=== PATIENT | female | born 1985 | race Two or more races ===

== ENCOUNTER 2021-02-18 14:38 | Emergency (ER) | payer MEDICAID, SELFPAY ==
[2021-02-18 14:44] VITALS: BP 154/94; PULSE 100; RESP 18; TEMP 36.9; O2SAT 97; BMI 38.7
--- NOTE | 2021-02-18 15:37 | ED.EYEPROB ---
HPI - Eye Problem General Chief complaint: Eye Problems Stated complaint: eye problem Time Seen by Provider: 02/18/21 15:32 Source: patient Limitations: no limitations History of Present Illness HPI Narrative: Patient complains of bilateral eye itching and burning with thick discharge for the past 2 days. Her father similar symptoms. Some blurred vision intermittently. No deep globe pain. No fevers or chills. Mild runny nose. No cough. No difficulty breathing. No COVID exposure that she knows of. She had something similar for years ago which resolved spontaneously. She thought it was allergies Related Data Previous Rx's Medication Instructions Recorded erythromycin 5 mg/gram (0.5 %) eye 0.5 inch OPHTHALMIC (EYE) QID #3.5 02/18/21 ointment g Allergies Allergy/AdvReac Type Severity Reaction Status Date / Time SEAFOOD Allergy Intermediate ANAPHYLAXSI Uncoded 02/10/20 18:42 S sea food Allergy Unknown Uncoded 01/19/20 00:00 Review of Systems Constitutional: Comments: No fevers or chills Eyes: Comments: Redness burning and discharged ENT: Comments: Mild rhinorrhea Cardiovascular: Comments: No chest pain Respiratory: Comments: No cough or dyspnea Gastrointestinal: Comments: No nausea vomiting PMFSH Past Medical History Medical History (Updated 02/18/21 @ 15:41 by Darren Valera MD) No active medical problems Social History Social History Advance Directives: No Advance Directives Information Provided: Yes Patient : No Physical Exam Vital Signs: Vital Signs: Last Vital Signs Temp 98.4 F 02/18/21 14:44 Pulse 100 02/18/21 14:44 Resp 18 02/18/21 14:44 BP 154/94 H 02/18/21 14:44 Pulse Ox 97 02/18/21 14:44 Body Mass Index 38.7 Const: Other: Awake alert no acute distress HENMT: Other: Normocephalic atraumatic Eyes: Other: Bilateral conjunctival injection with mild purulence drainage. Vision grossly intact. Pupils equal round reactive to light. Extraocular muscles intact. Funduscopic exam is normal Resp: Other: No respiratory distress Skin: Other: No obvious rash Course Course Course Narrative: Viral conjunctivitis Bacterial conjunctivitis Allergic conjunctivitis No evidence of significant globe abnormality. Given purulent drainage, it is more likely infectious conjunctivitis viral versus bacterial. Will start on Ilotycin and discharge home Discharge Plan Discharge Clinical Impression: Bacterial conjunctivitis Patient Disposition: Home, Self-Care Instructions: Conjunctivitis (ED) Prescriptions: New erythromycin 5 mg/gram (0.5 %) ointment 0.5 inch ophthalmic (eye) QID Qty: 3.5 RF: 0
== END 2021-02-18 15:54 | disposition home or self-care (01) ==
PROVIDERS: Emergency Provider Emergency Medicine; PCP Internal Medicine
DX: H10.33 Unspecified acute conjunctivitis, bilateral (principal)
CPT/HCPCS: 99283

== ENCOUNTER 2021-10-17 08:33 | Outpatient (REF) | payer MEDICAID, SELFPAY ==
[2021-10-23 11:51] LABS: HPV mRNA E6/E7 rflx Not Detected (Not Detected)
== END 2021-10-17 08:34 | disposition home or self-care (01) ==
LOC: HO.LAB 08:33
PROVIDERS: PCP Internal Medicine; Visit Provider Obstetrics & Gynecology
DX: Z01.419 Encounter for gynecological examination (general) (routine) without abnormal findings (principal); Z11.51 Encounter for screening for human papillomavirus (HPV)
CPT/HCPCS: 87624; 88142

== ENCOUNTER 2021-10-27 18:25 | Emergency (ER) | payer MEDICAID, SELFPAY ==
--- NOTE | ~2021-10-27 | CT_ITS ---
EXAMINATION: CT ABDOMEN AND PELVIS WITHOUT CONTRAST CLINICAL INFORMATION: Right-sided flank pain with question COMPARISON: CT abdomen pelvis 02/15/2019 TECHNIQUE: Multidetector volumetric imaging was performed from the superior aspect of the liver through the pubic symphysis. Sagittal and coronal reformatted images were obtained on the technologist's workstation. This CT examination was performed using dose optimization techniques as appropriate, variously including the following: *Automated exposure control *Adjustment of mA and/or kV according to patient size (this includes techniques or standardized protocols for targeted exams where dose is matched to indication/reason for exam; i.e. extremities or head) *Use of iterative reconstruction technique DLP: 964 mGy-cm FINDINGS: LUNG BASES: The visualized lung bases are unremarkable. LIVER, GALLBLADDER, AND BILIARY TREE: The liver is enlarged measuring 21.4 cm in greatest length and demonstrates decreased attenuation consistent with hepatic steatosis. No focal hepatic lesion or biliary ductal dilatation is present. The gallbladder is completely retracted but otherwise unremarkable with no evidence of radiopaque gallstones, gallbladder wall thickening, or obvious pericholecystic inflammatory changes. PANCREAS: Unremarkable. SPLEEN: Mild splenomegaly with spleen measuring 13.3 cm in greatest dimension. ADRENAL GLANDS: Unremarkable. KIDNEYS AND URETERS: The kidneys are normal in size, shape, and attenuation. No hydronephrosis, hydroureter, or calculi seen. No perinephric stranding. BLADDER: Unremarkable. GASTROINTESTINAL TRACT: The small and large bowel are unremarkable. The appendix is unremarkable. ABDOMINAL WALL: No significant hernia is appreciated. LYMPH NODES: No retroperitoneal lymphadenopathy. Multiple small lymph nodes are seen in the cecal mesentery. VASCULAR: Unremarkable. PELVIC VISCERA: A normal anteverted uterus is present. An abnormal mass or free intraperitoneal is not seen. OSSEOUS STRUCTURES: Unremarkable. CT/CT abdomen pelvis wo con IMPRESSION: 1. A cause for the patient's right flank pain has not been found 2. Incidental note made of hepatosplenomegaly and other findings described above. Fleischner guidelines were followed.
[2021-10-27 18:29] VITALS: BP 144/86; PULSE 98; RESP 20; TEMP 36.2; O2SAT 97; BMI 37.3
--- NOTE | 2021-10-27 21:55 | ED.ABDPAIN ---
HPI - Abdominal Pain General Chief Complaint: Abdominal Pain Stated Complaint: abd pain/lower back pain Time Seen by Provider: 10/27/21 21:50 History of Present Illness HPI narrative: Patient is a 36-year-old female no history of kidney stone history of diabetes presents today with having abdominal pain in the right lower quadrant radiating to the right flank area for ongoing for the last day. There is no fever there is no chills. No coughing or congestion or respiratory symptoms. No diaphoresis. Patient claims she is passing gas. Feels constipated. Patient denies any vaginal discharge. She is from home. No history of having similar pains in the past. Pain is worse with movement. No history of abdominal surgery in the past. Her menstruation has been normal. Related Data Home Medications Medication Instructions Recorded Confirmed glipizide 10 mg tablet, extended 10 mg PO BID 10/17/21 release 24 hr lisinopril 5 mg tablet 5 mg PO DAILY 10/17/21 naproxen 500 mg tablet 500 mg PO BID 10/17/21 prazosin 2 mg capsule 2 mg PO TID 10/17/21 Allergies Allergy/AdvReac Type Severity Reaction Status Date / Time SEAFOOD Allergy Intermediate ANAPHYLAXSI Uncoded 10/17/21 08:55 S sea food Allergy Unknown Unknown Uncoded 10/17/21 08:55 Review of Systems Review of Systems No fever no chills no chest pain or shortness of breath no nausea no vomiting Positive abdominal pain in the right lower quadrant radiating to the flank area Yes all other systems are reviewed and are negative PMFSH Past Medical History Attestation statement: The following information was validated with the patient. Medical History LISE II (cervical intraepithelial neoplasia II) Diabetes mellitus Headache, migraine No active medical problems Surgical History H/O LEEP Hx of tonsillectomy Social History Social History Patient Tobacco Use Status: Never used Tobacco Advance Directives: No Advance Directives Information Provided: No Patient : No Physical Exam ED Vital Signs: Vital Signs - 24 hr 10/27/21 18:29 Temperature 97.2 F Pulse Rate 98 Respiratory Rate 20 Blood Pressure 144/86 H Pulse Oximetry 97 BMI result Body Mass Index 37.3 Appearance: Alert. Oriented X3. No acute distress. Eyes: Pupils equal, round and reactive to light. ENT: Pharynx normal. Neck: Normal inspection. Neck supple. No lymph nodes noted. No crepitus CVS: Normal heart rate and rhythm. Pulses normal. Normal S1 and S2 Respiratory: No respiratory distress. Breath sounds normal. No Wheezing. No rales Abdomen: Soft and nontender. No rigidity. No distention. good BS x4 Skin: Skin warm and dry. Normal skin color. Normal skin turgor. Extremities: No lower extremity edema. Neurovascular intact to all extremities. No Lacerations. No Rash Neuro: Oriented X 3. No motor deficit. No sensory deficit. Moving all extermities. No slurred speech MDM - Abdominal Pain MDM Narrative Medical decision making narrative: CT scan of the abdomen pelvis was negative for any acute evidence of abscess, perforation. No appendicitis noted. Patient's electrolytes unremarkable. Will discharge patient home close follow-up on an outpatient basis. Urine showed no signs of infection. Differential Diagnosis Differential diagnosis: Likely abdominal pain Medical Records Attestation: I reviewed the patient's medical records. Lab Data Attestation: I reviewed the patient's lab results. Result diagrams: 10/27/21 22:11 10/27/21 22:11 Labs: Lab Results 10/27/21 10/27/21 10/27/21 Range/Units 22:11 22:13 22:13 WBC 7.9 (4.8-10.8) X10*3/uL RBC 5.41 (4.20-5.50) X10*6/uL Hgb 13.2 (12.0-16.0) g/dl Hct 41.8 (37.0-47.0) % MCV 77.3 L (80.0-98.0) fL MCH 24.4 L (27.0-33.0) pg MCHC 31.6 (31.0-35.0) g/dl RDW 14.2 (11.0-16.0) % Plt Count 262 (160-400) X10*3/uL MPV 10.4 (9.4-12.3) fL Immature Gran % (Auto) 0.6 H (0.0-0.4) % Neut % (Auto) 60.4 (45-73) % Lymph % (Auto) 31.4 (20-40) % [place] % (Auto) 5.7 (2-11) % Eos % (Auto) 1.4 (0-4) % Baso % (Auto) 0.5 (0-2) % Lymph # (Auto) 2.5 (1.2-4.9) X10*3/uL [place] # (Auto) 0.5 (0.1-1.2) X10*3/uL Eos # (Auto) 0.1 (0.0-0.4) X10*3/uL Baso # (Auto) 0.0 (0.0-0.2) X10*3/uL Abs Immat Gran (auto) 0.05 H (0.00-0.03) X10*3/uL Absolute Neuts (auto) 4.8 (2.0-8.3) x10*3/uL Absolute Nucleated RBC 0.000 (0.0-0.012) X10*3/uL Nucleated RBC % (auto) 0.0 (0.0-0.2) /100WBC Urine Color YELLOW Urine Appearance CLEAR Urine pH 6.0 (5.0-8.0) Ur Specific [place] 1.025 (1.005-1.025) Urine Protein NEG (NEG-TRACE) MG/DL Urine Glucose (UA) >=1000 H (NEG) MG/DL Urine Ketones NEG (NEG) MG/DL Urine Blood NEG (NEG) Urine Nitrite NEG (NEG) Ur Leukocyte Esterase NEG (NEG) Urine RBC 0 (0) /HPF Urine WBC 0-2 (0-4) /HPF Ur Squamous Epith Cells TRACE /LPF Urine Bacteria NONE /LPF Urine Test NEGATIVE (NEGATIVE) Discharge Plan Discharge Clinical Impression: Abdominal pain Patient Disposition: Home, Self-Care Instructions: Abdominal Pain (ED) Prescriptions: No Action prazosin 2 mg capsule 2 mg PO TID 0RF glipizide 10 mg tablet extended release 24hr 10 mg PO BID 0RF naproxen 500 mg tablet 500 mg PO BID 0RF lisinopril 5 mg tablet 5 mg PO DAILY 0RF Referrals: Jennifer Escobar MD [Primary Care Provider] - Print Language: Indonesian
[2021-10-27] MEDS: 0.9 % Sodium Chloride 1,000 ML 999 ML IV (22:15)
[2021-10-27] MEDS: Ketorolac Tromethamine 30 MG/ML VIAL IVPUSH (22:15)
[2021-10-27 22:17] LABS: MANUAL DIFF FLAG NO
[2021-10-27 22:19] LABS: Basophils Percent Auto 0.5 % (0-2); Eosinophils Absolute Auto 0.1 X10*3/uL (0.0-0.4); Eosinophils Percent Auto 1.4 % (0-4); Hematocrit 41.8 % (37.0-47.0); Hemoglobin 13.2 g/dl (12.0-16.0); Imm Gran Abs Auto 0.05 X10*3/uL (0.00-0.03); Imm Gran Pct Auto 0.6 % (0.0-0.4); Lymphocytes Absolute Auto 2.5 X10*3/uL (1.2-4.9); Lymphocytes Percent Auto 31.4 % (20-40); Mean Corpuscular HGB Conc 31.6 g/dl (31.0-35.0); Mean Corpuscular Hemoglobin 24.4 pg (27.0-33.0); Mean Corpuscular Volume 77.3 fL (80.0-98.0); Mean Platelet Volume 10.4 fL (9.4-12.3); Monocytes Absolute Auto 0.5 X10*3/uL (0.1-1.2); Monocytes Percent Auto 5.7 % (2-11); Neutrophils Absolute Auto 4.8 x10*3/uL (2.0-8.3); Neutrophils Percent Auto 60.4 % (45-73); Platelet Count 262 X10*3/uL (160-400); Red Blood Count 5.41 X10*6/uL (4.20-5.50); Red Cell Distribution Width 14.2 % (11.0-16.0); White Blood Count 7.9 X10*3/uL (4.8-10.8)
[2021-10-27 22:20] LABS: Appearance Urine CLEAR; Color Urine YELLOW; Glucose Urine UA >=1000 MG/DL (NEG); Leukocyte Esterase Urine NEG (NEG); Nitrite Urine NEG (NEG); Specific Gravity - Urine 1.025 (1.005-1.025); Urine Blood NEG (NEG); Urine Ketones NEG (NEG); Urine Protein NEG (NEG-TRACE)
[2021-10-27 22:21] LABS: UPreg QC Valid YES; Urine Pregnancy NEGATIVE (NEGATIVE)
[2021-10-27 22:49] LABS: RBC Urine 0 /HPF (0); Squamous Epithelial Cell Urine TRACE /LPF; WBC Urine 0-2 /HPF (0-4)
== END 2021-10-28 00:05 | disposition home or self-care (01) ==
PROVIDERS: Emergency Provider Emergency Medicine Emergency Medical Services; PCP Internal Medicine
DX: R10.31 Right lower quadrant pain (principal); M54.50 Low back pain, unspecified; Z79.899 Other long term (current) drug therapy
CPT/HCPCS: 36415; 74176; 81001; 81025; 85025; 96365; 96376; 99283; 99284; J1885

== ENCOUNTER 2022-03-07 13:28 | Emergency (ER) | payer MEDICAID, SELFPAY ==
[2022-03-07 13:42] VITALS: BP 127/77; PULSE 83; RESP 18; TEMP 36.4; O2SAT 100; BMI 37.7
--- NOTE | 2022-03-07 15:16 | ED.HA ---
HPI - Headache General Chief Complaint: Headache Stated Complaint: pain on L side of head Time Seen by Provider: 03/07/22 14:50 Source: patient Mode of arrival: ambulatory Limitations: no limitations History of Present Illness HPI Narrative: 37 yo female presents to the ER for evaluation of severe left sided headaches for the last 1 week. She states the pain is sharp, throbbing and located on the left side of her head, behind the left eye. There are times it is a 10/10, currentl a 7/10. It has been constant for 1 week. She has occasional nausea and vomiting from the pain, last was 4 days ago. She reports intermittent dizziness and blurred vision in the left eye as well. No weakness, numbness, tingling or gait instability. She reports a history of migraine headaches in the past but has not had one in 10 years. Denies photosensitity or sensitivity to sound. MD elicited complaint: headache Pertinent past history: migraines Onset (ago): week(s) (1) Onset description: gradually Location: left, temporal and retro-orbital Severity: severe Pain scale (0-10): 10 Quality & Timing: throbbing and sharp Exacerbating factors: none Relieving factors: nothing Context: occurred at rest Associated symptoms: vision loss Treatments prior to arrival: none Related Data Home Medications Medication Instructions Recorded Confirmed glipizide 10 mg tablet, extended 10 mg PO BID 10/17/21 release 24 hr lisinopril 5 mg tablet 5 mg PO DAILY 10/17/21 naproxen 500 mg tablet 500 mg PO BID 10/17/21 prazosin 2 mg capsule 2 mg PO TID 10/17/21 Previous Rx's Medication Instructions Recorded [id number] 1 cap PO Q8H PRN headache #10 caps 03/07/22 50 mg-300 mg-40 mg capsule (Fioricet) Allergies Allergy/AdvReac Type Severity Reaction Status Date / Time SEAFOOD Allergy Intermediate ANAPHYLAXSI Uncoded 10/17/21 08:55 S sea food Allergy Unknown Unknown Uncoded 10/17/21 08:55 [facility] Past Medical History Medical History LISE II (cervical intraepithelial neoplasia II) Diabetes mellitus Headache, migraine No active medical problems Surgical History H/O RACHEL Hx of tonsillectomy Social History Social History Patient Tobacco Use Status: Never used Tobacco Advance Directives: No Advance Directives Information Provided: No Physical Exam Vital Signs: Vital Signs: Last Vital Signs Temp 97.5 F 03/07/22 13:42 Pulse 83 03/07/22 13:42 Resp 18 03/07/22 13:42 BP 127/77 03/07/22 13:42 Pulse Ox 100 03/07/22 13:42 O2 Del Method 03/07/22 13:42 BMI result Body Mass Index 37.7 Appearance: Alert. Oriented X3. No acute distress. Eyes: Pupils equal, round and reactive to light. No nystagmus ENT: Pharynx normal. Normal TMs bilaterally. Neck: Normal inspection. Neck supple. CVS: Normal heart rate and rhythm. Pulses normal. Respiratory: No respiratory distress. Breath sounds normal. Skin: Skin warm and dry. Normal skin color. Normal skin turgor. No rashes. Extremities: No lower extremity edema. Neuro: Oriented X 3. No motor deficit. No sensory deficit.CN II-XII intact. Normal speech and cognition. Steady gait. Course Course Course Narrative: 37-year-old female presents to the ER for evaluation of left-sided headaches for the last 1 week. She describes retro-orbital pain, vision changes, this is consistent with an ocular migraine. History of migraines in the past but not for several years. She is neurologically intact. She reports 7/10 pain right now. Will treat with IV Toradol, Reglan, Benadryl. Will reassess. Reevaluation(s) Reevaluation #1: Patient's headache is almost completely resolved, 1/10 at this time. Will hold off on imaging of her head for now. She will follow-up with her primary care doctor. She is stable for discharge home. Return precautions were discussed. Discharge Plan Discharge Clinical Impression: Migraine Patient Disposition: Home, Self-Care Instructions: Migraine Headache (ED) Additional Instructions: Take the prescribed medication as needed for headaches. Rest and drink plenty of fluids. Follow-up with primary care doctor. If you develop new or worsening symptoms call 911 or come back to the ER for further evaluation. Prescriptions: New [id number] [Fioricet] 50-300-40 mg capsule 1 cap PO Q8H PRN (Reason: headache) Qty: 10 0RF No Action prazosin 2 mg capsule 2 mg PO TID glipizide 10 mg tablet extended release 24hr 10 mg PO BID naproxen 500 mg tablet 500 mg PO BID lisinopril 5 mg tablet 5 mg PO DAILY Print Language: Moroccan
[2022-03-07] MEDS: 0.9 % Sodium Chloride 1,000 ML 999 ML IVCONT (15:47)
[2022-03-07] MEDS: Ketorolac Tromethamine 30 MG/ML VIAL IVPUSH (15:49)
[2022-03-07] MEDS: diphenhydrAMINE HCL 50 MG/ML VIAL 25 MG IVPUSH (15:52)
[2022-03-07] MEDS: Metoclopramide HCl 10 MG/2 ML VIAL IVPUSH (15:55)
--- NOTE | 2022-03-07 18:02 | PC.NURSE ---
d/c by provider. Unknown if medicated.
== END 2022-03-07 18:03 | disposition home or self-care (01) ==
PROVIDERS: Emergency Provider Emergency Medicine; PCP Internal Medicine
DX: G43.909 Migraine, unspecified, not intractable, without status migrainosus (principal); E11.9 Type 2 diabetes mellitus without complications
CPT/HCPCS: 96361; 96374; 96375; 99284; J1200; J1885; J2765

== ENCOUNTER 2022-04-26 13:13 | Emergency (ER) | payer MEDICAID, SELFPAY ==
--- NOTE | ~2022-04-26 | XR_ITS ---
EXAMINATION: XR CHEST CLINICAL INFORMATION: Chest pain. COMPARISON: 11/28/2018 chest radiograph. TECHNIQUE: 2 views of the chest were obtained. FINDINGS: No significant abnormality is noted involving the heart, lungs, mediastinum, bony thorax or soft tissues. XR/XR chest 2V IMPRESSION: No acute cardiopulmonary process.
[2022-04-26 14:00] VITALS: BP 162/86; PULSE 96; RESP 18; TEMP 36.9; O2SAT 99; BMI 37.5
--- NOTE | 2022-04-26 14:00 | ED_ITS ---
HPI - General Adult General Chief complaint: Abdominal Pain <BARBARA Mims - Last Filed: 04/26/22 14:11> Stated complaint: Chest Stomach Pain <BARBARA Mims Last Filed: 04/26/22 14:11> Time Seen by Provider: 04/26/22 16:10 <BARBARA Mims Last Filed: 04/26/22 14:11> Source: patient and seismic interpreter <BARBARA Mims Last Filed: 04/26/22 14:11> Mode of arrival: ambulatory <BARBARA Mims Last Filed: 04/26/22 14:11> Limitations: language barrier <BARBARA Mims Last Filed: 04/26/22 14:11> History of Present Illness HPI narrative: 37-year-old female history of cervical intraepithelial neoplasia type 2, diabetes, headache/migraine, presenting to the emergency department with complaints of chest /abdominal pain times 2 days worsening. Patient tells me she feels like the pain starts in her epigastric region and radiates up towards her chest, she has a hard time describing the pain however she tells me it is i ntermittent in nature and feels like a discomfort and at times it is sharp. She tells me at 1 point she felt that if she throughout it would feel better however she was unable to throw up. Tells me she has had gastritis in the past however unsure if this felt like her episode of gastritis. She has not noticed any difference in pain level when eating food. Patient has no significant cardiac history other than hypertension, she is not a smoker, no history of DVT or PE, no history of hypercoagulable disorders. Patient denies shortness of breath, leg swelling, fevers, chills, nausea, vomiting, headache, vision changes, dizziness, weakness. <BARBARA Kelley - Last Filed: 04/26/22 19:51> Related Data Home medications: Home Medications Medication Instructions Recorded Confirmed glipizide 10 mg tablet, extended 10 mg PO BID 10/17/21 release 24 hr lisinopril 5 mg tablet 5 mg PO DAILY 10/17/21 naproxen 500 mg tablet 500 mg PO BID 10/17/21 prazosin 2 mg capsule 2 mg PO TID 10/17/21 Previous Rx's Medication Instructions Recorded lkxtfstkvu-oizfvzknsbzdz-ylrgrpag 1 cap PO Q8H PRN headache #10 caps 03/07/22 50 mg-300 mg-40 mg capsule (Fioricet) aluminum-mag hydroxide-simethicone 5 ml PO 5XD PRN dyspepsia #355 mL 04/26/22 200 mg-200 mg-20 mg/5 mL oral susp (Maalox Advanced) calcium carbonate 200 mg calcium 200 mg PO BID PRN dyspepsia #30 04/26/22 (500 mg) chewable tablet (Tums) tabs omeprazole 20 mg capsule,delayed 20 mg PO DAILY #30 caps 04/26/22 release <BARBARA Mims Last Filed: 04/26/22 14:11> Allergies/adverse reactions: Allergies Allergy/AdvReac Type Severity Reaction Status Date / Time SEAFOOD Allergy Intermediate ANAPHYLAXSI Uncoded 10/17/21 08:55 S sea food Allergy Unknown Unknown Uncoded 10/17/21 08:55 <BARBARA Mims Last Filed: 04/26/22 14:11> Review of Systems Review of Systems: Constitutional : No Weight loss, No Fever, No Chills, No Fatigue, No Malaise ENT/Mouth : No sore throat, No Rhinorrhea Eyes: No Eye Pain, No Swelling, No Redness Cardiovascular : + Chest Pain, No SOB, No Dyspnea on Exertion, No Orthopnea, No Edema, No Palpitations Respiratory : No Cough, No Sputum, No Wheezing Gastrointestinal : No Nausea, No Vomiting, No Diarrhea, No Constipation, + abdominal Pain, No Hematochezia, No Melena Genitourinary : No Dysuria, No Urinary Frequency, No Hematuria, Musculoskeletal : No joint pain, No Myalgias, No Joint Swelling Skin : No Skin Lesions, No rash Neuro : No Weakness, No Numbness, No Dizziness, No Headache Psych : No Anxiety/Panic, No Depression All other systems reviewed and are negative <BARBARA Kelley Last Filed: 04/26/22 19:51> Yes all other systems are reviewed and are negative <BARBARA Kelley Last Filed: 04/26/22 19:51> PMFSH Past Medical History Attestation statement: The following information was validated with the patient. <BARBARA Kelley Last Filed: 04/26/22 19:51> Source: old records reviewed and nursing notes reviewed <BARBARA Kelley - Last Filed: 04/26/22 19:51> Medical History: Medical History LISE II (cervical intraepithelial neoplasia II) Diabetes mellitus Headache, migraine No active medical problems <BARBARA Mims - Last Filed: 04/26/22 14:11> Surgical History: Surgical History H/O LEEP Hx of tonsillectomy <BARBARA Mims - Last Filed: 04/26/22 14:11> Social History Social History: Social History Patient Tobacco Use Status: Never used Tobacco Advance Directives: No Advance Directives Information Provided: Yes <BARBARA Mims - Last Filed: 04/26/22 14:11> Physical Exam ED Vital Signs: Vital Signs - 24 hr 04/26/22 14:00 Temperature 98.4 F Pulse Rate 96 Respiratory Rate 18 Blood Pressure 162/86 H Pulse Oximetry 99 Oxygen Delivery Method Room Air BMI result Body Mass Index 37.5 <BARBARA Mims - Last Filed: 04/26/22 14:11> Vital Signs - 24 hr 04/26/22 14:00 Temperature 98.4 F Pulse Rate 96 Respiratory Rate 18 Blood Pressure 162/86 H Pulse Oximetry 99 Oxygen Delivery Method Room Air BMI result Body Mass Index 37.5 vss <BARBARA Kelley - Last Filed: 04/26/22 19:51> Appearance: Alert.? Oriented X3.? No acute distress.? Head: Normocephalic, atraumatic, no step-offs or deformities Eyes: Pupils equal, round and reactive to light.? Neck: Normal inspection.? Neck supple.? CVS: Normal heart rate and rhythm.? Pulses normal.? Respiratory: No respiratory distress.? Breath sounds normal.? Abdomen: Soft and nontender.? Skin: Skin warm and dry.? Normal skin color.? Normal skin turgor.? Extremities: No lower extremity edema.? No calf ttp. 5/5 strength to bilateral upper and lower extremities Neuro: Oriented X 3.? No motor deficit.? No sensory deficit. CN 2-12 intact <BARBARA Kelley - Last Filed: 04/26/22 19:51> Course Reevaluation(s) Reevaluation #1: CBC with no acute findings, chemistry with no electrolyte abnormalities requiring intervention. Patient's glucose noted to be 339, patient tells me she has not taken her home medications today for diabetes, will hydrate with fluids and then do a point of care. Magnesium 1.5 will give 1 g of magnesium at this time. Troponin negative, BNP within normal limits, EKG nonischemic, Unlikely ACS. Will repeat troponin as patient is still complaining of some mild pain however I suspect that this is GI in origin, I do not suspect cardiac origin will give a GI cocktail, will do a p.o. challenge and re-evaluate patient. <BARBARA Kelley Last Filed: 04/26/22 19:51> Time: 16:33 <BARBARA Kelley - Last Filed: 04/26/22 19:51> Reevaluation #2: Patient tells me after GI cocktail she is feeling much better, symptoms resolved, will send her home with Maalox, omeprazole, Tums. Will recheck sugar. <BARBARA Kelley - Last Filed: 04/26/22 19:51> Time: 18:00 <BARBARA Kelley - Last Filed: 04/26/22 19:51> Medications Administered Discontinued Medications Generic Name Dose Route Start Last Admin Trade Name Freq PRN Reason Stop Dose Admin Al Hydroxide/Mg Hydroxide 30 ml 04/26/22 16:23 04/26/22 17:36 Magnesium Hydrox/Alum Hydrox 30 Ml Oral.Susp PO 04/26/22 16:24 30 ml ONCE ONE Administration Belladonna Alkaloids/Phenobarbital 10 ml 04/26/22 17:45 04/26/22 17:54 Phenobarb/Hyoscy/Atropine/Scop 10 Ml Elixir PO 04/26/22 17:46 10 ml ONCE ONE Administration Magnesium Sulfate/Dextrose 1 gm in 100 mls @ 100 mls/hr 04/26/22 16:13 04/26/22 18:40 Magnesium Sulfate/D5w IV 04/26/22 17:12 Infused ONCE ONE Infusion Sodium Chloride 1,000 mls @ 999 mls/hr 04/26/22 16:30 04/26/22 18:40 Ns IV 04/26/22 17:30 999 mls/hr .Q1H1M YANCY Administration Lisinopril 5 mg 04/26/22 16:27 04/26/22 17:35 Lisinopril 5 Mg Tablet PO 04/26/22 16:28 5 mg ONCE ONE Administration Protocol <BARBARA Mims - Last Filed: 04/26/22 14:11> Medications Administered Discontinued Medications Generic Name Dose Route Start Last Admin Trade Name Freq PRN Reason Stop Dose Admin Al Hydroxide/Mg Hydroxide 30 ml 04/26/22 16:23 04/26/22 17:36 Magnesium Hydrox/Alum Hydrox 30 Ml Oral.Susp PO 04/26/22 16:24 30 ml ONCE ONE Administration Belladonna Alkaloids/Phenobarbital 10 ml 04/26/22 17:45 04/26/22 17:54 Phenobarb/Hyoscy/Atropine/Scop 10 Ml Elixir PO 04/26/22 17:46 10 ml ONCE ONE Administration Magnesium Sulfate/Dextrose 1 gm in 100 mls @ 100 mls/hr 04/26/22 16:13 04/26/22 18:40 Magnesium Sulfate/D5w IV 04/26/22 17:12 Infused ONCE ONE Infusion Sodium Chloride 1,000 mls @ 999 mls/hr 04/26/22 16:30 04/26/22 18:40 Ns IV 04/26/22 17:30 999 mls/hr .Q1H1M YANCY Administration Lisinopril 5 mg 04/26/22 16:27 04/26/22 17:35 Lisinopril 5 Mg Tablet PO 04/26/22 16:28 5 mg ONCE ONE Administration Protocol <BARBARA Kelley - Last Filed: 04/26/22 19:51> Medical Decision Making [facility] Narrative Medical decision making narrative: 1616 37-year-old female presenting to the emergency department complaints of epigastric pain and chest discomfort x2 days worsening. Physical examination benign. Perc negative, unlikely that this is PE. Low suspicion for ACS however will rule out. Unlikely that this is CHF. Unlikely that this is DVT. Concerns for possible GERD/gastritis. I do not suspect cardiac etiologies. Plan at this time is basic labs, imaging, EKG, troponin, BNP. <BARBARA Kelley - Last Filed: 04/26/22 19:51> Medical Records Medical records reviewed: Yes I reviewed the patient's medical records. <BARBARA Kelley - Last Filed: 04/26/22 19:51> Lab Data Lab results reviewed: Yes I reviewed the patient's lab results. <BARBARA Kelley - Last Filed: 04/26/22 19:51> Result diagrams: : 04/26/22 14:13 04/26/22 14:13 <BARBARA Mims - Last Filed: 04/26/22 14:11> Labs: Lab Results 04/26/22 04/26/22 04/26/22 Range/Units 14:13 14:13 14:13 WBC 5.6 (4.8-10.8) X10*3/uL RBC 5.46 (4.20-5.50) X10*6/uL Hgb 13.0 (12.0-16.0) g/dl Hct 41.2 (37.0-47.0) % MCV 75.5 L (80.0-98.0) fL MCH 23.8 L (27.0-33.0) pg MCHC 31.6 (31.0-35.0) g/dl RDW 14.4 (11.0-16.0) % Plt Count 261 (160-400) X10*3/uL MPV 9.9 (9.4-12.3) fL Immature Gran % (Auto) 0.5 H (0.0-0.4) % Neut % (Auto) 65.0 (45-73) % Lymph % (Auto) 26.7 (20-40) % [place] % (Auto) 5.7 (2-11) % Eos % (Auto) 1.6 (0-4) % Baso % (Auto) 0.5 (0-2) % Lymph # (Auto) 1.5 (1.2-4.9) X10*3/uL [place] # (Auto) 0.3 (0.1-1.2) X10*3/uL Eos # (Auto) 0.1 (0.0-0.4) X10*3/uL Baso # (Auto) 0.0 (0.0-0.2) X10*3/uL Abs Immat Gran (auto) 0.03 (0.00-0.03) X10*3/uL Absolute Neuts (auto) 3.7 (2.0-8.3) x10*3/uL Absolute Nucleated RBC 0.000 (0.0-0.012) X10*3/uL Nucleated RBC % (auto) 0.0 (0.0-0.2) /100WBC Sodium 134 L (135-145) mmol/L Potassium 3.9 (3.3-5.1) mmol/L Chloride 98 (96-108) mmol/L Carbon Dioxide 29 (22-29) mmol/L Anion Gap 11 L (12-20) BUN 12 (9-16) mg/dL Creatinine 0.84 (0.5-1.4) mg/dL Estim Creat Clear Calc 117.6 Estimated GFR > 60 Random Glucose 339 H (60-115) mg/dL Calcium 9.9 (8.4-10.2) mg/dL Magnesium 1.5 L (1.6-2.6) mg/dL Total Bilirubin 0.3 (0.0-1.0) mg/dL AST 18 (5-31) U/L ALT 41 H (0-31) U/L Alkaline Phosphatase 84 (39-117) U/L Troponin I High Sens < 3.5 (<3.5-17.0) ng/L B-Natriuretic Peptide (<100) pg/mL Total Protein 7.1 (6.5-8.0) g/dL Albumin 4.2 (3.5-5.0) g/dL Lipase 28 (8-78) U/L Beta HCG, Quant < 2 mIU/mL 04/26/22 04/26/22 Range/Units 14:13 16:46 WBC (4.8-10.8) X10*3/uL RBC (4.20-5.50) X10*6/uL Hgb (12.0-16.0) g/dl Hct (37.0-47.0) % MCV (80.0-98.0) fL MCH (27.0-33.0) pg MCHC (31.0-35.0) g/dl RDW (11.0-16.0) % Plt Count (160-400) X10*3/uL MPV (9.4-12.3) fL Immature Gran % (Auto) (0.0-0.4) % Neut % (Auto) (45-73) % Lymph % (Auto) (20-40) % [place] % (Auto) (2-11) % Eos % (Auto) (0-4) % Baso % (Auto) (0-2) % Lymph # (Auto) (1.2-4.9) X10*3/uL [place] # (Auto) (0.1-1.2) X10*3/uL Eos # (Auto) (0.0-0.4) X10*3/uL Baso # (Auto) (0.0-0.2) X10*3/uL Abs Immat Gran (auto) (0.00-0.03) X10*3/uL Absolute Neuts (auto) (2.0-8.3) x10*3/uL Absolute Nucleated RBC (0.0-0.012) X10*3/uL Nucleated RBC % (auto) (0.0-0.2) /100WBC Sodium (135-145) mmol/L Potassium (3.3-5.1) mmol/L Chloride (96-108) mmol/L Carbon Dioxide (22-29) mmol/L Anion Gap (12-20) BUN (9-16) mg/dL Creatinine (0.5-1.4) mg/dL Estim Creat Clear Calc Estimated GFR Random Glucose (60-115) mg/dL Calcium (8.4-10.2) mg/dL Magnesium (1.6-2.6) mg/dL Total Bilirubin (0.0-1.0) mg/dL AST (5-31) U/L ALT (0-31) U/L Alkaline Phosphatase (39-117) U/L Troponin I High Sens < 3.5 (<3.5-17.0) ng/L B-Natriuretic Peptide < 10 (<100) pg/mL Total Protein (6.5-8.0) g/dL Albumin (3.5-5.0) g/dL Lipase (8-78) U/L Beta HCG, Quant mIU/mL <BARBARA Mims - Last Filed: 04/26/22 14:11> Lab Results 04/26/22 04/26/22 04/26/22 Range/Units 14:13 14:13 14:13 WBC 5.6 (4.8-10.8) X10*3/uL RBC 5.46 (4.20-5.50) X10*6/uL Hgb 13.0 (12.0-16.0) g/dl Hct 41.2 (37.0-47.0) % MCV 75.5 L (80.0-98.0) fL MCH 23.8 L (27.0-33.0) pg MCHC 31.6 (31.0-35.0) g/dl RDW 14.4 (11.0-16.0) % Plt Count 261 (160-400) X10*3/uL MPV 9.9 (9.4-12.3) fL Immature Gran % (Auto) 0.5 H (0.0-0.4) % Neut % (Auto) 65.0 (45-73) % Lymph % (Auto) 26.7 (20-40) % [place] % (Auto) 5.7 (2-11) % Eos % (Auto) 1.6 (0-4) % Baso % (Auto) 0.5 (0-2) % Lymph # (Auto) 1.5 (1.2-4.9) X10*3/uL [place] # (Auto) 0.3 (0.1-1.2) X10*3/uL Eos # (Auto) 0.1 (0.0-0.4) X10*3/uL Baso # (Auto) 0.0 (0.0-0.2) X10*3/uL Abs Immat Gran (auto) 0.03 (0.00-0.03) X10*3/uL Absolute Neuts (auto) 3.7 (2.0-8.3) x10*3/uL Absolute Nucleated RBC 0.000 (0.0-0.012) X10*3/uL Nucleated RBC % (auto) 0.0 (0.0-0.2) /100WBC Sodium 134 L (135-145) mmol/L Potassium 3.9 (3.3-5.1) mmol/L Chloride 98 (96-108) mmol/L Carbon Dioxide 29 (22-29) mmol/L Anion Gap 11 L (12-20) BUN 12 (9-16) mg/dL Creatinine 0.84 (0.5-1.4) mg/dL Estim Creat Clear Calc 117.6 Estimated GFR > 60 Random Glucose 339 H (60-115) mg/dL Calcium 9.9 (8.4-10.2) mg/dL Magnesium 1.5 L (1.6-2.6) mg/dL Total Bilirubin 0.3 (0.0-1.0) mg/dL AST 18 (5-31) U/L ALT 41 H (0-31) U/L Alkaline Phosphatase 84 (39-117) U/L Troponin I High Sens < 3.5 (<3.5-17.0) ng/L B-Natriuretic Peptide (<100) pg/mL Total Protein 7.1 (6.5-8.0) g/dL Albumin 4.2 (3.5-5.0) g/dL Lipase 28 (8-78) U/L Beta HCG, Quant < 2 mIU/mL 04/26/22 04/26/22 Range/Units 14:13 16:46 WBC (4.8-10.8) X10*3/uL RBC (4.20-5.50) X10*6/uL Hgb (12.0-16.0) g/dl Hct (37.0-47.0) % MCV (80.0-98.0) fL MCH (27.0-33.0) pg MCHC (31.0-35.0) g/dl RDW (11.0-16.0) % Plt Count (160-400) X10*3/uL MPV (9.4-12.3) fL Immature Gran % (Auto) (0.0-0.4) % Neut % (Auto) (45-73) % Lymph % (Auto) (20-40) % [place] % (Auto) (2-11) % Eos % (Auto) (0-4) % Baso % (Auto) (0-2) % Lymph # (Auto) (1.2-4.9) X10*3/uL [place] # (Auto) (0.1-1.2) X10*3/uL Eos # (Auto) (0.0-0.4) X10*3/uL Baso # (Auto) (0.0-0.2) X10*3/uL Abs Immat Gran (auto) (0.00-0.03) X10*3/uL Absolute Neuts (auto) (2.0-8.3) x10*3/uL Absolute Nucleated RBC (0.0-0.012) X10*3/uL Nucleated RBC % (auto) (0.0-0.2) /100WBC Sodium (135-145) mmol/L Potassium (3.3-5.1) mmol/L Chloride (96-108) mmol/L Carbon Dioxide (22-29) mmol/L Anion Gap (12-20) BUN (9-16) mg/dL Creatinine (0.5-1.4) mg/dL Estim Creat Clear Calc Estimated GFR Random Glucose (60-115) mg/dL Calcium (8.4-10.2) mg/dL Magnesium (1.6-2.6) mg/dL Total Bilirubin (0.0-1.0) mg/dL AST (5-31) U/L ALT (0-31) U/L Alkaline Phosphatase (39-117) U/L Troponin I High Sens < 3.5 (<3.5-17.0) ng/L B-Natriuretic Peptide < 10 (<100) pg/mL Total Protein (6.5-8.0) g/dL Albumin (3.5-5.0) g/dL Lipase (8-78) U/L Beta HCG, Quant mIU/mL <ABRBARA Kelley - Last Filed: 04/26/22 19:51> ECG Data Attestation: I personally reviewed and interpreted this ECG as follows: <BARBARA Kelley - Last Filed: 04/26/22 19:51> Prior ECG tracings: available for review <BARBARA Kelley - Last Filed: 04/26/22 19:51> Interpretation: Ventricular rate of 95, HI normal, QRS QT/QTC normal. EKG with normal sinus rhythm minimal voltage for LVH, no ST elevations or inversions concerning for ischemia. No significant changes when compared to previous 11/24/2019 <BARBARA Kelley - Last Filed: 04/26/22 19:51> Critical Care Time Critical Care Time Critical Care Time: No <BARBARA Kelley - Last Filed: 04/26/22 19:51> Discharge Plan Discharge Clinical Impression: Gastritis, Gastroesophageal reflux disease <BARBARA Mims Last Filed: 04/26/22 14:11> Patient Disposition: Home, Self-Care <BARBARA Mims Last Filed: 04/26/22 14:11> Instructions: Gastritis (ED), Diet for Stomach Ulcers and Gastritis (ED), Gastroesophageal Reflux Disease (ED), Indigestion (ED) <BARBARA Mims Last Filed: 04/26/22 14:11> Additional Instructions: Take your medications as prescribed. If you were prescribed antibiotics today, it is important that you take your medication to their entirety, do not skip any doses, do not finish them early. Follow-up with your primary care provider this week. If discomfort persist please follow-up with gastroenterology information below. Return to the emergency department with new or worsening symptoms. Such as fevers, chills, chest pain, shortness of breath, nausea, vomiting, dizziness, headache, vision changes, lethargy Follow the dietary recommendations In case of emergency call 911 <BARBARA Mims - Last Filed: 04/26/22 14:11> Prescriptions: New alum-mag hydroxide-simeth [Maalox Advanced] 200-200-20 mg/5 mL suspension 5 ml PO 5XD PRN (Reason: dyspepsia) Qty: 355 0RF Rx Instructions: administer between meals and at bedtime calcium carbonate [Tums] 200 mg calcium (500 mg) tablet,chewable 200 mg PO BID PRN (Reason: dyspepsia) Qty: 30 0RF omeprazole 20 mg capsule,delayed release(DR/EC) 20 mg PO DAILY Qty: 30 0RF No Action plshfdezva-igorvvysaceac-vfvz [Fioricet] 50-300-40 mg capsule 1 cap PO Q8H PRN (Reason: headache) Qty: 10 0RF prazosin 2 mg capsule 2 mg PO TID glipizide 10 mg tablet extended release 24hr 10 mg PO BID naproxen 500 mg tablet 500 mg PO BID lisinopril 5 mg tablet 5 mg PO DAILY <BARBARA Mims - Last Filed: 04/26/22 14:11> [place] [facility] [place] [facility] [place] [facility] [place] Group] - 1 week Jennifer Escobar MD [Primary Care Provider] - 2 days <BARBARA Mims - Last Filed: 04/26/22 14:11> Stand Alone Forms: Work/School Release <BARBARA Mims - Last Filed: 04/26/22 14:11>
--- NOTE | 2022-04-26 14:01 | ECG_ITS ---
Test Reason : abd pain Blood Pressure : / mmHG Vent. Rate : 095 BPM Atrial Rate : 095 BPM P-R Int : 168 ms QRS Dur : 084 ms QT Int : 354 ms P-R-T Axes : 041 -05 023 degrees QTc Int : 444 ms Normal sinus rhythm Minimal voltage criteria for LVH, may be normal variant ( R in aVL ) Borderline ECG Referred By: Val Franco Electronically Signed By:Yaakov Smith
[2022-04-26 14:20] LABS: MANUAL DIFF FLAG NO
[2022-04-26 14:27] LABS: Basophils Percent Auto 0.5 % (0-2); Eosinophils Absolute Auto 0.1 X10*3/uL (0.0-0.4); Eosinophils Percent Auto 1.6 % (0-4); Hematocrit 41.2 % (37.0-47.0); Imm Gran Abs Auto 0.03 X10*3/uL (0.00-0.03); Imm Gran Pct Auto 0.5 % (0.0-0.4); Lymphocytes Absolute Auto 1.5 X10*3/uL (1.2-4.9); Lymphocytes Percent Auto 26.7 % (20-40); Mean Corpuscular HGB Conc 31.6 g/dl (31.0-35.0); Mean Corpuscular Hemoglobin 23.8 pg (27.0-33.0); Mean Corpuscular Volume 75.5 fL (80.0-98.0); Mean Platelet Volume 9.9 fL (9.4-12.3); Monocytes Absolute Auto 0.3 X10*3/uL (0.1-1.2); Monocytes Percent Auto 5.7 % (2-11); Neutrophils Absolute Auto 3.7 x10*3/uL (2.0-8.3); Platelet Count 261 X10*3/uL (160-400); Red Blood Count 5.46 X10*6/uL (4.20-5.50); Red Cell Distribution Width 14.4 % (11.0-16.0); White Blood Count 5.6 X10*3/uL (4.8-10.8)
[2022-04-26 14:42] LABS: B Type Natriuretic Peptide < 10 pg/mL (<100); Troponin-I High Sensitivity < 3.5 ng/L (<3.5-17.0)
[2022-04-26 14:48] LABS: Alanine Aminotransferase 41 U/L (0-31); Albumin Level 4.2 g/dL (3.5-5.0); Alkaline Phosphatase 84 U/L (39-117); Anion Gap 11 (12-20); Aspartate Amino Transferase 18 U/L (5-31); Bilirubin Total 0.3 mg/dL (0.0-1.0); Blood Urea Nitrogen 12 mg/dL (9-16); Calcium 9.9 mg/dL (8.4-10.2); Carbon Dioxide 29 mmol/L (22-29); Chloride 98 mmol/L (96-108); Creatinine Clr Calc Pharmacy 117.6; Estimated Glomerular Filt Rate > 60; Glucose Random 339 mg/dL (60-115); HCG Quantitative < 2 mIU/mL; Magnesium 1.5 mg/dL (1.6-2.6); Potassium 3.9 mmol/L (3.3-5.1); Sodium 134 mmol/L (135-145); Total Protein 7.1 g/dL (6.5-8.0)
[2022-04-26 16:48] LABS: Lipase 28 U/L (8-78)
--- NOTE | 2022-04-26 16:51 | PC.NURSE ---
#20 IV placed in right wrist without any complications noted
[2022-04-26] MEDS: lisinopriL 5 MG TABLET PO (17:35)
[2022-04-26] MEDS: Magnesium Sulfate/D5W 1 GM/100 ML PIGGYBACK IV (17:35)
[2022-04-26] MEDS: Magnesium Hydrox/Alum Hydrox 30 ML ORAL.SUSP PO (17:36)
[2022-04-26 17:41] LABS: Troponin-I High Sensitivity < 3.5 ng/L (<3.5-17.0)
[2022-04-26] MEDS: PHENobarb/Hyoscy/Atropine/Scop 10 ML ELIXIR PO (17:54)
[2022-04-26] MEDS: 0.9 % Sodium Chloride 1,000 ML 999 ML IV (18:40)
[2022-04-26 20:11] LABS: Glucose, Whole Blood 274 mg/dL (60-115)
== END 2022-04-26 20:30 | disposition home or self-care (01) ==
PROVIDERS: Physician Assistant; Physician Assistant Medical; Emergency Provider Emergency Medicine Emergency Medical Services; PCP Internal Medicine
DX: K29.70 Gastritis, unspecified, without bleeding (principal); K21.9 Gastro-esophageal reflux disease without esophagitis; R10.9 Unspecified abdominal pain; R06.02 Shortness of breath; R07.89 Other chest pain; E11.9 Type 2 diabetes mellitus without complications; R51.9 Headache, unspecified; Z79.899 Other long term (current) drug therapy
CPT/HCPCS: 36415; 71046; 80053; 82947; 83690; 83735; 83880; 84484; 84702; 85025; 93005; 96365; 99284; J3475

== ENCOUNTER → 2022-04-29 12:25 | Outpatient (BNVA) | payer MEDICAID, SELFPAY | PROVIDERS: PCP Internal Medicine; Referring Provider Internal Medicine; Visit Provider Surgery | DX: L73.2 Hidradenitis suppurativa (principal); E11.9 Type 2 diabetes mellitus without complications | CPT/HCPCS: 99202 ==

== ENCOUNTER 2022-06-28 06:03 | Day surgery (SDC) | payer MEDICAID, SELFPAY ==
[2022-06-21 15:13] VITALS: BMI 37.5
[2022-06-28] VITALS (13 sets, daily range): BP systolic 126–140; BP diastolic 80–91; PULSE 65–107; RESP 16–18; TEMP 36.2–36.6; O2SAT 96–98
[2022-06-28 06:26] LABS: Glucose, Whole Blood 230 mg/dL (60-115)
[2022-06-28] MEDS: Lactated Ringers 1,000 ML 50 ML IVCONT (06:32)
[2022-06-28 06:37] LABS: UPreg QC Valid YES; Urine Pregnancy NEGATIVE (NEGATIVE)
--- NOTE | 2022-06-28 07:10 | HO.ANESPROP2 ---
[facility] Active Problems Active Problems: All Active Problems (Updated 06/21/22 @ 15:07 by Latasha Desir RN) Well woman exam (Acute) Hidradenitis suppurativa of left axilla (Acute) Morbid obesity (Acute) Past Medical History Medical History LISE II (cervical intraepithelial neoplasia II) Diabetes mellitus Headache, migraine Hidradenitis suppurativa of left axilla Morbid obesity Patient : No Family History Family History Mother No problems noted. Father Hypertension Surgical History Surgical History H/O LEEP Hx of tonsillectomy Social History Social History Patient Tobacco Use Status: Never used Tobacco Are you DNR?: No Advance Directives: No Advance Directives Information Provided: Yes Nutrition Risks: No Nutritional Risk Patient : No FDLMP: 2 months ago Meds Allergies Allergy/AdvReac Type Severity Reaction Status Date / Time seafood Allergy Severe Anaphylaxis Verified 06/21/22 15:05 Active Medications: Current Medications Lactated Ringer's (Lr) 1,000 mls @ 50 mls/hr IVCONT .Q20H YANCY Last Admin: 06/28/22 06:32 Dose: 50 mls/hr Home Medications Medication Instructions Recorded Confirmed Last Taken Type glipizide 10 mg tablet, extended 10 mg PO BID 10/17/21 06/21/22 Unknown History release 24 hr lisinopril 5 mg tablet 5 mg PO DAILY 10/17/21 06/21/22 Unknown History naproxen 500 mg tablet 500 mg PO BID 10/17/21 06/21/22 Unknown History prazosin 2 mg capsule 2 mg PO TID 10/17/21 06/21/22 Unknown History sitagliptin phos 100 mg-metformin 1 tab PO DAILY 04/29/22 06/21/22 Unknown History ER 1,000 mg tablet,extend rel 24h mp (Janumet XR) Exam Exam Date and Time: June 28, 2022 0710 Height,Weight and Vital Signs: Height 5 ft 7 in Weight 108.919 kg Last Vital Signs Temp 97.9 F 06/28/22 06:30 Pulse 96 06/28/22 06:30 Resp 18 06/28/22 06:30 BP 139/89 06/28/22 06:30 Pulse Ox 97 06/28/22 06:30 O2 Del Method 06/28/22 06:30 Pertinent Lab Results Pertinent Lab Results: Laboratory Tests 06/28/22 06/28/22 06:10 06:23 POC Glucose 230 H Urine Test NEGATIVE Airway Mallampati Class: III TM Dist: >3cm Neck ROM: Full Heart: RRR Lungs: CTA Assessment and Plan Final Anesthetic Review ASA Class: II Final Preanesthetic Review: Meds/Allgs Chart Reviewed, Consent Obtained/Reviewed and Anes Risks/Benef Reviewed Patient Risk: Low Procedure Risk: Low Anesthetic Plan Anesthetic Plan: GA Disposition: Standard PACU
--- NOTE | 2022-06-28 07:16 | PC.NURSE ---
dr. chung aware of bs.
--- NOTE | 2022-06-28 07:22 | MHC.SHP ---
Pre-Procedural Eval Section A Date of Service: 06/28/22 Section B Chief Complaint: Hidradenitis suppurativa Details of Present Illness: recurrent swelling and drainage, left axilla Relevant Social History: None Present Medications: see Short Stay Collaborative assessment Medical History: Significant History (morbid obesity) Allergies: Allergies Allergy/AdvReac Type Severity Reaction Status Date / Time seafood Allergy Severe Anaphylaxis Verified 06/21/22 15:05 Review of Systems Sugical H&P ROS: Negative: Constitution, Cardiovascular, Respiratory, Neurological, Psychiatric, Hem-Onc, Allergic/Immunologic, Gastrointestinal, Genitourinary, Musculoskeletal, Integumentary, Endocrine and Eyes/Ears/Nose/Throat Exam Surgical H&P Exam: Normal: HEENT, Normal: Heart, Normal: Lungs, Normal: Extremities, Normal: Abdomen, Normal: Skin and Normal: Neurological Exam Comment: induration with sinuses, left axilla Plan I have reviewed the history and physical and performed a pertinent physical examination on my patient. No changes have occurred unless specified. Time Spent With Patient Time: Total time managing care of this patient today ____ minutes.
--- NOTE | 2022-06-28 08:21 | W.PM.OPN ---
Operative Note Operative Note Date of Service: 06/28/22 Narrative: Preop diagnosis: Hidradenitis suppurativa left axilla Postop diagnosis: The same Procedure: Excision of hidradenitis suppurativa left axilla Surgeon: Nadeem Ceballos MD Community Health Agent: BARBARA Tian student The patient is a 37-year-old female with an area of pain, swelling and drainage on the left axilla consistent with hidradenitis suppurative. Wanted to proceed with excision. She understood the technique of excision under anesthesia. She was aware of the risks, benefits, and alternatives She was brought to the operating room. She was placed supine under general anesthesia via laryngeal mask airway. The left arm was abducted to expose the axilla. This area was prepped and draped the usual sterile fashion. A surgical time-out was done. Lidocaine 1% was used to infiltrate the planned line of incision. The incision elliptically surrounding the induration using blade 15. This was carried down with electrocautery through the full-thickness of the skin subcutaneous fat. Continue to excise indurated tissue within subcutaneous fat. I made sure that skin and subcutaneous tissue were excised. The area of excision was 9 cm long by about 3 cm wide I copiously irrigated. I then cauterized oozing areas. Once hemostasis was confirmed, I closed the incision with deep full-thickness nylon 3-0 interrupted sutures. Dressings were applied. I infiltrated the area around the incision with cane 0.5% for postop analgesia. The procedure was completed. The patient tolerated procedure well. There were no immediate complications. Initial and final counts of sponges and instruments were correct. Estimated blood loss was about 15 cc The patient was extubated without difficulty and transferred to the recovery room with stable vital signs.
[2022-06-28] MEDS: fentaNYL citrate/PF 100 MCG/2 ML VIAL 25 MCG IVPUSH (09:00)
[2022-06-28] MEDS: Acetaminophen 325 MG TABLET 650 MG PO (09:08)
[2022-06-28] MEDS: oxyCODONE HCl Immed Release 5 MG TABLET 10 MG PO (09:12)
--- NOTE | 2022-06-28 13:38 | HO.POSTANES ---
Post Anesthesia Evaluation Post Anesthesia Evaluation Vital Signs: Vital Signs Temp Pulse Resp BP Pulse Ox O2 Del Method O2 Flow Rate 06/28/22 10:03 97.7 F 90 16 127/80 97 Room Air 06/28/22 09:48 92 17 134/84 97 Room Air 06/28/22 09:33 91 17 131/82 98 Room Air 06/28/22 09:18 89 17 132/84 98 Nasal Cannula 2 06/28/22 09:03 98 17 131/91 H 98 Nasal Cannula 4 06/28/22 09:05 90 17 140/88 H 98 Nasal Cannula 4 06/28/22 09:00 98 16 131/91 H 98 4 06/28/22 09:14 90 17 126/89 98 3 06/28/22 09:00 16 06/28/22 08:43 107 H 16 126/80 97 Nasal Cannula 4 06/28/22 08:38 96 16 134/82 97 Nasal Cannula 4 06/28/22 08:48 88 16 131/87 97 Nasal Cannula 4 06/28/22 08:33 97.1 F 65 16 134/82 96 Nasal Cannula 4 06/28/22 06:30 97.9 F 96 18 139/89 97 Room Air Anesthesia: General LMA Mental Status: Awake Pain Control: Satisfactory Nausea/Vomiting: None Hydration: Adequate Anesthesia-Related Issues: No Anes. Related Issues
== END 2022-06-28 10:22 | disposition home or self-care (01) ==
PROVIDERS: Anesthesiology; PCP Internal Medicine; Visit Provider Surgery
PROC: (CPT 11450; principal; 2022-06-28 07:30)
DX: L73.2 Hidradenitis suppurativa (principal); G43.909 Migraine, unspecified, not intractable, without status migrainosus; E11.9 Type 2 diabetes mellitus without complications; Z79.84 Long term (current) use of oral hypoglycemic drugs; Z79.899 Other long term (current) drug therapy; E66.01 Morbid (severe) obesity due to excess calories; Z68.37 Body mass index [BMI] 37.0-37.9, adult
CPT/HCPCS: 11450; 81025; 82947; 88305; J0690; J2250; J2405; J2795; J3010

== ENCOUNTER → 2022-07-11 09:00 | Outpatient (BNVA) | payer MEDICAID, SELFPAY | PROVIDERS: PCP Internal Medicine; Referring Provider Internal Medicine; Visit Provider Physician Assistant Surgical | DX: Z48.817 Encounter for surgical aftercare following surgery on the skin and subcutaneous tissue (principal); Z87.2 Personal history of diseases of the skin and subcutaneous tissue | CPT/HCPCS: 99211 ==

== ENCOUNTER 2022-07-18 10:55 | Outpatient (AMB) | payer MEDICAID, SELFPAY ==
--- NOTE | 2022-07-18 11:00 | MHC.OFFVIS ---
Intake Vital Signs 07/18/22 11:02 Height 5 ft 7 in Weight 244 lb 4.355 oz BMI 38.2 Respiration 16 Intake Visit Reasons: suture removal Intake Note: Pt c/o: burning and pinching at top left side of incision Furniture Mover Required: Yes Furniture Mover Name: [id number] Accompanied by: Significant Other Allergies seafood Allergy (Severe, Verified 07/18/22 11:13) Anaphylaxis HPI suture removal HPI Details Here for follow up s/p excision of hidradenitis left axilla. She has some mild persistent discomfort at the excision site. She took percocet for a few days and then tylenol. Denies drainage, redness from area. [facility] Medical History (Updated 07/10/22 @ 14:57 by Sade Lerma CMA) LISE II (cervical intraepithelial neoplasia II) Diabetes mellitus Headache, migraine Hidradenitis suppurativa of left axilla Morbid obesity Surgical History (Updated 07/10/22 @ 14:57 by Sade Lerma CMA) H/O LEEP History of hidradenitis suppurativa Hx of tonsillectomy Family History Mother No problems noted. Father Hypertension Social History Patient Tobacco Use Status: Never used Tobacco Female Reproductive History Menstrual Age of Menarche: 13 Physical Exam Vital Signs: Last Vital Signs Resp 16 07/18/22 11:02 BMI result Body Mass Index 38.2 Const General: comfortable, no acute distress and alert Orientation/consciousness: patient oriented x3 Chest Other: left axilla- medial aspect of incision well healed and approximated; lateral aspect with some induration and ?keloid formation of superior edge; no opening of excision site and it does appear approximated, no erythema, no drainage, area is tender Resp Effort & Inspection: normal respiratory effort Skin General skin exam: no rashes or lesions noted Neuro General: patient oriented x3 Assessment & Plan Assessment & Plan (1) Hidradenitis suppurativa of left axilla: Code(s): L73.2 - Hidradenitis suppurativa Plan She is three weeks s/p excision of hidradenitis left axilla. Her sutures were removed. She does have some persistent induration and keloid formation of lateral aspect of site. F/u in 2 weeks for wound check. Coding Level of Care Code Est Pt Level 3 (82011) Diagnoses Hidradenitis suppurativa of left axilla L73.2
[2022-07-18 11:02] VITALS: RESP 16; BMI 38.2
== END 2022-07-18 11:21 | disposition home or self-care (01) ==
LOC: HO.HGS 10:56
PROVIDERS: PCP Internal Medicine; Visit Provider Physician Assistant Surgical
DX: L73.2 Hidradenitis suppurativa (principal)
CPT/HCPCS: 99024

== ENCOUNTER → 2022-07-18 10:55 | Outpatient (BNVA) | payer MEDICAID, SELFPAY | PROVIDERS: PCP Internal Medicine; Visit Provider Physician Assistant Surgical | DX: Z13.89 Encounter for screening for other disorder (principal) ==

== ENCOUNTER → 2022-08-21 10:33 | Outpatient (BNVA) | payer MEDICAID, SELFPAY | PROVIDERS: PCP Internal Medicine; Referring Provider Internal Medicine; Visit Provider Surgery | DX: L02.411 Cutaneous abscess of right axilla (principal) | CPT/HCPCS: 10060; 99212 ==

== ENCOUNTER 2022-08-21 11:17 | Inpatient (IN) | payer MEDICAID, SELFPAY ==
[2022-08-21 11:34] VITALS: BP 147/88; PULSE 96; RESP 18; TEMP 36.7; O2SAT 97; BMI 37.1
--- NOTE | 2022-08-21 11:56 | PM.HPGS ---
History of Present Illness History of Present Illness Date of Service: 08/22/22 Chief complaint: Right Axillary Abscess and Cellulitis Narrative: Jacque Hernández is a 37 year old female who is seen in the office earlier because of right axillary swelling, and discharge. She stated this has been going on for about 5 days now. She had an area of fluctuance on the axilla on the right side so an I and D was done in the office. However, she had significant induration and redness consistent with cellulitis. I therefore brought her to the emergency room to be admitted for IV antibiotics and possible repeat I&D. She otherwise denies any fever or chills. She does have a history of hidradenitis suppurativa of the left axilla and this had been excised in the past. She also has known diabetes. Review of Systems Constitutional: Constitutional: Denies chills and Denies fever(s) Cardiovascular: Cardiovascular: Denies chest pain, Denies dyspnea and Denies dyspnea on exertion Respiratory: Respiratory: Denies cough, Denies dyspnea and Denies dyspnea on exertion Gastrointestinal: Gastrointestinal: Denies hematochezia and Denies change in bowel habits Genitourinary: Genitourinary: Denies hematuria Musculoskeletal: Musculoskeletal: Denies back pain and Denies limited range of motion Neurologic: Denies focal weakness and Denies convulsions Psychiatric: Psychiatric: Denies depression and Denies mood swings PMFSH Past Medical History Medical History Abscess of right axilla LISE II (cervical intraepithelial neoplasia II) Diabetes mellitus Headache, migraine Hidradenitis suppurativa of left axilla Morbid obesity Family History Family History Mother No problems noted. Father Hypertension Surgical History Surgical History H/O LEEP History of hidradenitis suppurativa Hx of tonsillectomy Social History Social History Household Members: Spouse Housing: Apartment Do you presently have visiting nurse or other home services: No Alcohol intake: never Patient Tobacco Use Status: Former Tobacco user Meds Allergies Allergy/AdvReac Type Severity Reaction Status Date / Time seafood Allergy Severe Anaphylaxis Verified 08/21/22 13:02 Active Medications: Current Medications Piperacillin Sod/Tazobactam (Sod 3.375 gm/ Sodium Chloride) 50 mls @ 100 mls/hr IV ONCE ONE Stop: 08/21/22 12:06 Pharmacy Consult (Consult Rx Perform Med Rec) 1 each MISCELLANE ONCE PRN PRN Reason: Consult order Home Medications Medication Instructions Recorded Confirmed Last Taken Type glipizide 10 mg tablet, extended 10 mg PO BID 10/17/21 08/21/22 08/21/22 History release 24 hr lisinopril 5 mg tablet 5 mg PO DAILY 10/17/21 08/21/22 Unknown History sitagliptin phos 100 mg-metformin 1 tab PO DAILY 04/29/22 08/21/22 Unknown History ER 1,000 mg tablet,extend rel 24h mp (Janumet XR) acetaminophen 325 mg tablet 650 mg PO Q6H PRN Pain 08/21/22 08/21/22 Unknown History canagliflozin 100 mg tablet 100 mg PO QAM 08/21/22 08/21/22 Unknown History (Invokana) fluoxetine 20 mg capsule 20 mg PO QAM 08/21/22 08/21/22 Unknown History hydroxyzine pamoate 50 mg capsule 50 mg PO TID PRN anxiety 08/21/22 08/21/22 Unknown History meclizine 25 mg tablet 25 mg PO TID PRN dizziness 08/21/22 08/21/22 Unknown History mirtazapine 7.5 mg tablet 7.5 mg PO BEDTIME 08/21/22 08/21/22 Unknown History multivitamin 1 tab PO DAILY 08/21/22 08/21/22 Unknown History oxycodone-acetaminophen 5 mg-325 1 tab PO Q4-6H PRN pain 08/21/22 08/21/22 Unknown History mg tablet sumatriptan succinate 25 mg tablet 25 mg PO DAILY PRN Migraine 08/21/22 08/21/22 Unknown History Headache Physical Exam Vital Signs: Vital Signs: Last Vital Signs Temp 98.0 F 08/21/22 11:34 Pulse 96 08/21/22 11:34 Resp 18 08/21/22 11:34 BP 147/88 H 08/21/22 11:34 Pulse Ox 97 08/21/22 11:34 O2 Del Method Room Air 08/21/22 11:34 BMI result Body Mass Index 37.1 Const: Other: Obese General: comfortable and no acute distress Orientation/consciousness: patient oriented x3 Neck: Neck: Yes no lymphadenopathy Resp: Auscultation: clear to auscultation bilaterally Cardio: Rhythm: regular rhythm GI: Palpation (GI): Soft to palpation, nontender and no guarding Neuro: General: patient oriented x3 Extrem: Other: Right axilla with wide area of induration, short incision from the I&D site, surrounding redness as well consistent with cellulitis Assessment and Plan (1) Abscess of skin or subcutaneous tissue: Status: Acute I had done an I and D in the office under local anesthesia for a large right axillar abscess. However she does have large amounts of induration and cellulitis of the area so I told her that it is best for her to be admitted and be given IV antibiotics. She may also require repeat I&D in the operating room depending on her response to the antibiotics. I will re-evaluate her in the morning. She has a known diabetes so I will also consult the hospitalist service. The patient and her understand the plan and are comfortable with this. Time Spent With Patient Time: Total time managing care of this patient today ____ minutes. Quality Stroke Does the patient have a stroke diagnosis?: No VTE Prior VTE?: No VTE Risk Level:: Medical - low VTE Device Contraindication: N/A - Device Ordered VTE Drug Contraindication: Treatment Not Indicated Procedures Date of Service Date of Service: 08/21/22
--- NOTE | 2022-08-21 12:04 | ED.SKABFB ---
HPI - Skin/Abscess/Foreign Bdy General Chief complaint: Skin/Abscess/Foreign Body Stated complaint: Cyst Rt axilla sent by [facility] Time Seen by Provider: 08/21/22 11:37 Source: patient Mode of arrival: ambulatory Limitations: language barrier History of Present Illness HPI narrative: istory obtained through senior test analyst. patient presents from Dr. Ceballos with right axillary abscess and cellulitis. In June she had I&D on the left. Patient has been a diabetic for 8 years. No fever. She noticed the swelling for 5 days. MD complaint: abscess/boil Onset (ago): day(s) Tetanus up to date: yes Location: RUE Severity: moderate Pain Consistency: constant Related Data Home Medications Medication Instructions Recorded Confirmed glipizide 10 mg tablet, extended 10 mg PO BID 10/17/21 08/21/22 release 24 hr lisinopril 5 mg tablet 5 mg PO DAILY 10/17/21 08/21/22 sitagliptin phos 100 mg-metformin 1 tab PO DAILY 04/29/22 08/21/22 ER 1,000 mg tablet,extend rel 24h mp (Janumet XR) acetaminophen 325 mg tablet 650 mg PO Q6H PRN Pain 08/21/22 08/21/22 canagliflozin 100 mg tablet 100 mg PO QAM 08/21/22 08/21/22 (Invokana) fluoxetine 20 mg capsule 20 mg PO QAM 08/21/22 08/21/22 hydroxyzine pamoate 50 mg capsule 50 mg PO TID PRN anxiety 08/21/22 08/21/22 meclizine 25 mg tablet 25 mg PO TID PRN dizziness 08/21/22 08/21/22 mirtazapine 7.5 mg tablet 7.5 mg PO BEDTIME 08/21/22 08/21/22 multivitamin 1 tab PO DAILY 08/21/22 08/21/22 oxycodone-acetaminophen 5 mg-325 1 tab PO Q4-6H PRN pain 08/21/22 08/21/22 mg tablet sumatriptan succinate 25 mg tablet 25 mg PO DAILY PRN Migraine 08/21/22 08/21/22 Headache Previous Rx's Medication Instructions Recorded calcium carbonate 200 mg calcium 200 mg PO BID PRN dyspepsia #30 04/26/22 (500 mg) chewable tablet (Tums) tabs omeprazole 20 mg capsule,delayed 20 mg PO DAILY #30 caps 04/26/22 release Allergies Allergy/AdvReac Type Severity Reaction Status Date / Time seafood Allergy Severe Anaphylaxis Verified 08/21/22 13:02 Review of Systems Review of Systems: Yes all other systems are reviewed and are negative Integumentary/Breasts: Comments: axillary swelling and redness Neurologic: Denies Sensory deficit (Neuro) [facility] Past Medical History Medical History Abscess of right axilla LISE II (cervical intraepithelial neoplasia II) Diabetes mellitus Headache, migraine Hidradenitis suppurativa of left axilla Morbid obesity Surgical History H/O LEEP History of hidradenitis suppurativa Hx of tonsillectomy Family History Family History Mother No problems noted. Father Hypertension Social History Social History Alcohol intake: never Patient Tobacco Use Status: Never used Tobacco Smoked in Last 30 Days: No Use of substances other than those prescribed or required for medical reasons: No Advance Directives: No Advance Directives Information Provided: Yes Nutrition Risks: No Nutritional Risk Patient : No Physical Exam Vital Signs: Vital Signs: Last Vital Signs Temp 97.6 F 08/21/22 13:07 Pulse 107 H 08/21/22 13:07 Resp 16 08/21/22 13:07 BP 130/73 08/21/22 13:07 Pulse Ox 99 08/21/22 13:07 O2 Del Method Room Air 08/21/22 13:07 BMI result Body Mass Index 37.1 Const: Other: obese femle looking older than stated age Nutritional Appearance: obese Orientation/consciousness: oriented to person and patient oriented x3 Limitations: no limitations HEENT: Head: Yes normal to inspection Ears: external ears normal General nose exam: Normal external nose present Mouth: Normal oral and palatal mucosa present and oropharynx normal Throat: Yes posterior oropharynx normal Eyes: General: appearance normal, both eyes and all related structures Neck: Other: supple Neck: Yes normal visual inspection Chest: Chest palpation & inspection: normal inspection of the chest Resp: Auscultation: clear to auscultation bilaterally Cardio: Jugular venous distension: no JVD Rate: regular rate Rhythm: regular rhythm Heart sounds: S1 normal heart sound present and S2 normal heart sound present GI: Inspection: Yes normal to inspection Palpation (GI): Soft to palpation, nontender and No hepatosplenomegaly present Auscultation: normal bowel sounds : General: Yes no CVA tenderness Back/Spine/Pelvis: Back: no CVA tenderness Skin: Other: large right axillary abscess with surrounding cellulitis Neuro: General: oriented to person and patient oriented x3 Cranial nerves: Yes CN's II-XII intact bilaterally Motor exam (neuro): 5/5 motor strength present throughout Sensory Exam: No Sensory deficit (Neuro) Extrem: General: Yes normal to inspection Psych: Appearance: grossly normal Course Reevaluation(s) Reevaluation #1: patient is hyperglycemic and infected will admit Time: 14:37 Medications Administered Discontinued Medications Generic Name Dose Route Start Last Admin Trade Name Freq PRN Reason Stop Dose Admin Piperacillin Sod/Tazobactam 50 mls @ 100 mls/hr 08/21/22 11:37 08/21/22 13:47 Sod 3.375 gm/ Sodium Chloride IV 08/21/22 12:06 Infused ONCE ONE Infusion Insulin Human Lispro 10 unit 08/21/22 13:34 08/21/22 13:47 Insulin Lispro 100 Unit/Ml 3 Ml Vial SUBCUT 08/21/22 13:35 10 unit ONCE ONE Administration Medical Decision Making Differential Diagnosis Differential Diagnoses: The differential diagnosis associated with the presentation includes (abscess, cellulitis) Consult Healthcare Provider Management of the patient was discussed with: Merchandising Execution Manager (Dr. Ceballos surgery) Lab Data MDM Lab Attestation statement: I reviewed the patient's lab results. (treated glucose) 08/21/22 12:38 08/21/22 12:38 Labs: Lab Results 08/21/22 08/21/22 08/21/22 Range/Units 12:22 12:38 12:38 WBC 7.2 (4.8-10.8) X10*3/uL RBC 5.43 (4.20-5.50) X10*6/uL Hgb 13.0 (12.0-16.0) g/dl Hct 40.9 (37.0-47.0) % MCV 75.3 L (80.0-98.0) fL MCH 23.9 L (27.0-33.0) pg MCHC 31.8 (31.0-35.0) g/dl RDW 14.4 (11.0-16.0) % Plt Count 241 (160-400) X10*3/uL MPV 10.0 (9.4-12.3) fL Immature Gran % (Auto) 0.7 H (0.0-0.4) % Neut % (Auto) 71.2 (45-73) % Lymph % (Auto) 20.7 (20-40) % [place] % (Auto) 5.7 (2-11) % Eos % (Auto) 1.4 (0-4) % Baso % (Auto) 0.3 (0-2) % Lymph # (Auto) 1.5 (1.2-4.9) X10*3/uL [place] # (Auto) 0.4 (0.1-1.2) X10*3/uL Eos # (Auto) 0.1 (0.0-0.4) X10*3/uL Baso # (Auto) 0.0 (0.0-0.2) X10*3/uL Abs Immat Gran (auto) 0.05 H (0.00-0.03) X10*3/uL Absolute Neuts (auto) 5.1 (2.0-8.3) x10*3/uL Absolute Nucleated RBC 0.000 (0.0-0.012) X10*3/uL Nucleated RBC % (auto) 0.0 (0.0-0.2) /100WBC Sodium 136 (135-145) mmol/L Potassium 4.4 (3.3-5.1) mmol/L Chloride 102 (96-108) mmol/L Carbon Dioxide 23 (22-29) mmol/L Anion Gap 15 (12-20) BUN 11 (9-16) mg/dL Creatinine 0.80 (0.5-1.4) mg/dL Estim Creat Clear Calc 122.7 Estimated GFR > 60 Random Glucose 355 H* (60-115) mg/dL Calcium 9.3 D (8.4-10.2) mg/dL COVID-19 (YESI) Negative (Negative) COVID-19 Clin Com See Note Independent Historian Clinical information obtained from an independent historian. History obtained from or confirmed by: Spouse Chronic Conditions Patient?s care impacted by: Diabetes Discharge Plan Discharge Clinical Impression: Cellulitis, Abscess of skin or subcutaneous tissue Patient Disposition: Admitted As Inpatient
--- NOTE | 2022-08-21 12:30 | PC.NURSE ---
pt AOx3, slovak speaking, coming from Dr. Ceballos office with infection of right axillary cyst post drainage. vitals stable, IV inserted. tech drawing labs. awaiting BC draw before hanging IV ABX. will cont to monitor.
[2022-08-21 12:44] LABS: MANUAL DIFF FLAG NO
[2022-08-21 12:48] LABS: Basophils Percent Auto 0.3 % (0-2); Eosinophils Absolute Auto 0.1 X10*3/uL (0.0-0.4); Eosinophils Percent Auto 1.4 % (0-4); Hematocrit 40.9 % (37.0-47.0); Imm Gran Abs Auto 0.05 X10*3/uL (0.00-0.03); Imm Gran Pct Auto 0.7 % (0.0-0.4); Lymphocytes Absolute Auto 1.5 X10*3/uL (1.2-4.9); Lymphocytes Percent Auto 20.7 % (20-40); Mean Corpuscular HGB Conc 31.8 g/dl (31.0-35.0); Mean Corpuscular Hemoglobin 23.9 pg (27.0-33.0); Mean Corpuscular Volume 75.3 fL (80.0-98.0); Monocytes Absolute Auto 0.4 X10*3/uL (0.1-1.2); Monocytes Percent Auto 5.7 % (2-11); Neutrophils Absolute Auto 5.1 x10*3/uL (2.0-8.3); Neutrophils Percent Auto 71.2 % (45-73); Platelet Count 241 X10*3/uL (160-400); Red Blood Count 5.43 X10*6/uL (4.20-5.50); Red Cell Distribution Width 14.4 % (11.0-16.0); White Blood Count 7.2 X10*3/uL (4.8-10.8)
--- NOTE | 2022-08-21 12:57 | PHA.MEDREC ---
Pharmacy Consult ? Medication Reconciliation Pharmacy has completed the medication reconciliation. Patient had bottle on Invokana with her even thought last fill was in . Patient reports no longer using Lantus, naproxen or verapamil. Lourdes Busby, PharmD
[2022-08-21 13:01] LABS: COVID-19 Test Negative (Negative); IDNOW Serial# BCCEAD1C
[2022-08-21 13:07] VITALS: BP 130/73; PULSE 107; RESP 16; TEMP 36.4; O2SAT 99
[2022-08-21] MEDS: Piperacillin Sodium/Tazobactam 3.375 GM in 0.9 % Sodium Chloride 50 ML IV ×2 (13:12→19:48)
--- NOTE | 2022-08-21 13:15 | PC.NURSE ---
IV abx hung per order. vitals stable. call king within reach will cont to monitor.
[2022-08-21 13:28] LABS: Anion Gap 15 (12-20); Blood Urea Nitrogen 11 mg/dL (9-16); Calcium 9.3 mg/dL (8.4-10.2); Carbon Dioxide 23 mmol/L (22-29); Chloride 102 mmol/L (96-108); Creatinine Clr Calc Pharmacy 122.7; Estimated Glomerular Filt Rate > 60; Glucose Random 355 mg/dL (60-115); Potassium 4.4 mmol/L (3.3-5.1); Sodium 136 mmol/L (135-145)
[2022-08-21] MEDS: Insulin Lispro 100 UNIT/ML 3 ML VIAL 10 UNIT SUBCUT (13:47)
--- NOTE | 2022-08-21 13:50 | PC.NURSE ---
pt BG 355. 10 units Lispro given per order. Pt requesting to order food. this nurse communicated to the pt that the MD requests BG get below 300 before ordering food.
--- NOTE | 2022-08-21 13:56 | P.CONIM_ITS ---
History of Present Illness Data of Consult Service Date: 08/21/22 Primary Care Provider: Jennifer Rahman MD HPI Reason for consult: DM, hTN 37F PMH DM, obesity, HTN, mood disorder, hydradenitis suppurata, presented at surgical clinic for 3 cm area of fluctuance in the right axilla with surrounding redness. Had some drainage in the office but was sent to the hospital for IV antibiotics for cellulitis and plan for incision and drainage depending on how it looks tomorrow. Medical consult requested for comanagement of medical comorbidities including diabetes, hypertension. Review of Systems Review of Systems: Yes all other systems are reviewed and are negative [facility] Medical History Abscess of right axilla LISE II (cervical intraepithelial neoplasia II) Diabetes mellitus Headache, migraine Hidradenitis suppurativa of left axilla Morbid obesity Family History Mother No problems noted. Father Hypertension Surgical History H/O LEEP History of hidradenitis suppurativa Hx of tonsillectomy Social History Alcohol intake: never Patient Tobacco Use Status: Never used Tobacco Smoked in Last 30 Days: No Use of substances other than those prescribed or required for medical reasons: No Advance Directives: No Advance Directives Information Provided: Yes Nutrition Risks: No Nutritional Risk Patient : No Meds Allergies Allergy/AdvReac Type Severity Reaction Status Date / Time seafood Allergy Severe Anaphylaxis Verified 08/21/22 13:02 Active Medications: Current Medications Calcium Carbonate (Calcium Carbonate 750 Mg Tab.Chew) 750 mg PO BID PRN PRN Reason: dyspepsia Fluoxetine HCl (Fluoxetine Hcl 20 Mg Capsule) 20 mg PO DAILY YANCY Glucose (Glucose Gel 15 Gm Gel..Gram.) 15 gm PO Q15M PRN; Protocol PRN Reason: per Hypoglycemia Standing Ord. Hydroxyzine HCl (Hydroxyzine Hcl 50 Mg Tablet) 50 mg PO TID PRN PRN Reason: anxiety Piperacillin Sod/Tazobactam (Sod 3.375 gm/ Sodium Chloride) 50 mls @ 100 mls/hr IV Q6H YANCY Dextrose (D10) 250 mls @ 750 mls/hr IV Q15M PRN; Protocol PRN Reason: per Hypoglycemia Standing Ord. Insulin Human Lispro (Insulin Lispro 100 Unit/Ml 3 Ml Vial) 0 unit SUBCUT QIDACHS YANCY; Protocol Lisinopril (Lisinopril 5 Mg Tablet) 5 mg PO DAILY YANCY; Protocol Meclizine HCl (Meclizine Hcl 25 Mg Tablet) 25 mg PO TID PRN PRN Reason: dizziness Mirtazapine (Mirtazapine 7.5 Mg Tablet) 7.5 mg PO BEDTIME YANCY Omeprazole (Omeprazole 20 Mg Capsule.Dr) 20 mg PO DAILY@0630 [facility] Oxycodone HCl (Oxycodone Hcl Immed Release 5 Mg Tablet) 10 mg PO Q4H PRN PRN Reason: Pain, Moderate (Pain Scale 4-6 Pharmacy Consult (Consult Rx Perform Med Rec) 1 each MISCELLANE ONCE PRN PRN Reason: Consult order Sodium Chloride (0.9 % Sodium Chloride Flush 3 Ml Syringe) 3 ml IVFLUSH QSHIFT [facility] Sumatriptan Succinate (Sumatriptan Succinate 25 Mg Tablet) 25 mg PO DAILY PRN PRN Reason: Migraine Headache Home Medications Medication Instructions Recorded Confirmed Last Taken Type glipizide 10 mg tablet, extended 10 mg PO BID 10/17/21 08/21/22 08/21/22 History release 24 hr lisinopril 5 mg tablet 5 mg PO DAILY 10/17/21 08/21/22 Unknown History sitagliptin phos 100 mg-metformin 1 tab PO DAILY 04/29/22 08/21/22 Unknown History ER 1,000 mg tablet,extend rel 24h mp (Janumet XR) acetaminophen 325 mg tablet 650 mg PO Q6H PRN Pain 08/21/22 08/21/22 Unknown History canagliflozin 100 mg tablet 100 mg PO QAM 08/21/22 08/21/22 Unknown History (Invokana) fluoxetine 20 mg capsule 20 mg PO QAM 08/21/22 08/21/22 Unknown History hydroxyzine pamoate 50 mg capsule 50 mg PO TID PRN anxiety 08/21/22 08/21/22 Unknown History meclizine 25 mg tablet 25 mg PO TID PRN dizziness 08/21/22 08/21/22 Unknown History mirtazapine 7.5 mg tablet 7.5 mg PO BEDTIME 08/21/22 08/21/22 Unknown History multivitamin 1 tab PO DAILY 08/21/22 08/21/22 Unknown History oxycodone-acetaminophen 5 mg-325 1 tab PO Q4-6H PRN pain 08/21/22 08/21/22 Unknown History mg tablet sumatriptan succinate 25 mg tablet 25 mg PO DAILY PRN Migraine 08/21/22 08/21/22 Unknown History Headache Physical Exam Vital Signs and Narrative: Vital Signs: Last Vital Signs Temp 97.6 F 08/21/22 13:07 Pulse 107 H 08/21/22 13:07 Resp 16 08/21/22 13:07 BP 130/73 08/21/22 13:07 Pulse Ox 99 08/21/22 13:07 O2 Del Method Room Air 08/21/22 13:07 BMI result Body Mass Index 37.1 large right axillary abscess with surrounding cellulitis Results Labs 08/21/22 12:38 08/21/22 12:38 Labs: Laboratory Results - last 24 hr 08/21/22 08/21/22 08/21/22 12:22 12:38 12:38 MCV 75.3 L MCH 23.9 L MCHC 31.8 RDW 14.4 Plt Count 241 MPV 10.0 Immature Gran % (Auto) 0.7 H Neut % (Auto) 71.2 Lymph % (Auto) 20.7 [place] % (Auto) 5.7 Eos % (Auto) 1.4 Baso % (Auto) 0.3 Lymph # (Auto) 1.5 [place] # (Auto) 0.4 Eos # (Auto) 0.1 Baso # (Auto) 0.0 Abs Immat Gran (auto) 0.05 H Absolute Neuts (auto) 5.1 Absolute Nucleated RBC 0.000 Nucleated RBC % (auto) 0.0 Anion Gap 15 Estim Creat Clear Calc 122.7 Estimated GFR > 60 Random Glucose 355 H* Calcium 9.3 D COVID-19 (YESI) Negative COVID-19 Clin Com See Note Assessment and Plan (1) Cellulitis: Status: Acute Plan 37F PMH DM, obesity, HTN, mood disorder, hydradenitis suppurata, presented with right axilla abscess Right axillary abscess with cellulitis IV antibiotics, management per surgery Diabetes with hyperglycemia Will hold orals, cover with insulin Hypertension Lisinopril Mood disorder Fluoxetine Obesity Weight loss recommended Time Spent With Patient Time: Total time managing care of this patient today ____ minutes.
[2022-08-21 15:26] LABS: Glucose, Whole Blood 238 mg/dL (60-115)
--- NOTE | 2022-08-21 15:42 | PM.EVENT ---
Event Note Date of Service: 08/21/22 Event Note: Seen on afternoon rounds Says she is comfortable Stable vital signs Blood sugars were 355 earlier down to 230 Hospitalist consulted for diabetes On IV Zosyn NPO post midnight for possiblel I&D under anesthesia tomorrow Time Spent With Patient Time: Total time managing care of this patient today ____ minutes.
[2022-08-21] MEDS: 0.9 % Sodium Chloride Flush 3 ML SYRINGE IVFLUSH ×2 (17:37→21:19)
[2022-08-21] MEDS: Insulin Lispro 100 UNIT/ML 3 ML VIAL SUBCUT ×2 (18:23→21:40)
[2022-08-21 18:25] VITALS: BP 129/78; PULSE 107; RESP 18; TEMP 36.8; O2SAT 96
--- NOTE | 2022-08-21 18:26 | PC.NURSE ---
pt awaiting bed assignment., vitals stable. insulin lispro given per sliding scale.
[2022-08-21 19:16] LABS: Glucose, Whole Blood 240 mg/dL (60-115)
--- NOTE | 2022-08-21 20:57 | PC.NURSE ---
pt medicated according to jul. pt at bedside. nonstick dressing placed on abcess in r armpit. pt tolerated well. nurse to nurse report called to daksha
[2022-08-21 21:07] LABS: Glucose, Whole Blood 312 mg/dL (60-115)
[2022-08-21 21:14] VITALS: BP 137/75; PULSE 108; RESP 18; TEMP 36.6; O2SAT 97
[2022-08-22] VITALS (11 sets, daily range): BP systolic 120–142; BP diastolic 67–90; PULSE 80–102; RESP 16–20; TEMP 36.1–36.8; O2SAT 95–98
[2022-08-22] MEDS: Piperacillin Sodium/Tazobactam 3.375 GM in 0.9 % Sodium Chloride 50 ML IV ×4 (01:05→18:39)
[2022-08-22] MEDS: 0.9 % Sodium Chloride Flush 3 ML SYRINGE IVFLUSH ×3 (01:06→20:57)
[2022-08-22] MEDS: Omeprazole 20 MG CAPSULE.DR PO (06:15)
[2022-08-22 07:35] LABS: Glucose, Whole Blood 311 mg/dL (60-115)
[2022-08-22] MEDS: Insulin Lispro 100 UNIT/ML 3 ML VIAL SUBCUT ×3 (07:59→20:57)
[2022-08-22 08:27] LABS: UPreg QC Valid YES; Urine Pregnancy NEGATIVE (NEGATIVE)
--- NOTE | 2022-08-22 08:43 | PM.EVENT ---
Event Note Date of Service: 08/22/22 Event Note: no fever overnight she does have some pain on the right axilla exam shows persistent marked induration, swelling and redness in the right axilla will proceed with I&D in the operating room on IV antibiotics she understands the technique of I and D in the operating room she is aware of the risks including but not limited to bleeding, persistent infections, open wound, postop pain, as well as the benefits and alternatives Time Spent With Patient Time: Total time managing care of this patient today ____ minutes.
[2022-08-22] MEDS: FLUoxetine HCl 20 MG CAPSULE PO (09:09)
[2022-08-22] MEDS: 0.9 % Sodium Chloride 1,000 ML 75 ML IVCONT (09:09)
--- NOTE | 2022-08-22 09:27 | P.PNIM_ITS ---
Subjective Subjective Date of Service: 08/22/22 Interval History: no complaints Neurologic Neurologic: Denies Sensory deficit (Neuro) Physical Exam Vital Signs: Vital Signs: Last Vital Signs Temp 97.4 F 08/22/22 07:16 Pulse 80 08/22/22 07:16 Resp 18 08/22/22 07:16 BP 134/78 08/22/22 07:16 Pulse Ox 96 08/22/22 07:16 O2 Del Method Room Air 08/22/22 07:16 BMI result Body Mass Index 37.1 Const: Other: obese femle looking older than stated age Nutritional Appearance: obese Orientation/consciousness: oriented to person and patient oriented x3 Limitations: no limitations HEENT: Head: Yes normal to inspection Ears: external ears normal General nose exam: Normal external nose present Mouth: Normal oral and palatal mucosa present and oropharynx normal Throat: Yes posterior oropharynx normal Eyes: General: appearance normal, both eyes and all related structures Neck: Other: supple Neck: Yes normal visual inspection Chest: Chest palpation & inspection: normal inspection of the chest Resp: Auscultation: clear to auscultation bilaterally Cardio: Jugular venous distension: no JVD Rate: regular rate Rhythm: regular rhythm Heart sounds: S1 normal heart sound present and S2 normal heart sound present GI: Inspection: Yes normal to inspection Palpation (GI): Soft to palpation, nontender and No hepatosplenomegaly present Auscultation: normal bowel sounds : General: Yes no CVA tenderness Back/Spine/Pelvis: Back: no CVA tenderness Skin: Other: large right axillary abscess with surrounding cellulitis Neuro: General: oriented to person and patient oriented x3 Cranial nerves: Yes CN's II-XII intact bilaterally Motor exam (neuro): 5/5 motor strength present throughout Sensory Exam: No Sensory deficit (Neuro) Extrem: General: Yes normal to inspection Psych: Appearance: grossly normal Objective Data Active Medications Calcium Carbonate (Calcium Carbonate 750 Mg Tab.Chew) 750 mg PO BID PRN PRN Reason: dyspepsia Fluoxetine HCl (Fluoxetine Hcl 20 Mg Capsule) 20 mg PO DAILY [facility] Last Admin: 08/22/22 09:09 Dose: 20 mg Documented By: HOGabrielleCOTEMA Glucose (Glucose Gel 15 Gm Gel..Gram.) 15 gm PO Q15M PRN; Protocol PRN Reason: per Hypoglycemia Standing Ord. Hydroxyzine HCl (Hydroxyzine Hcl 50 Mg Tablet) 50 mg PO TID PRN PRN Reason: anxiety Piperacillin Sod/Tazobactam (Sod 3.375 gm/ Sodium Chloride) 50 mls @ 100 mls/hr IV Q6H [facility] Last Infusion: 08/22/22 06:59 Dose: 0 mls/hr Documented By: URMILA Dextrose (D10) 250 mls @ 750 mls/hr IV Q15M PRN; Protocol PRN Reason: per Hypoglycemia Standing Ord. Sodium Chloride (Ns) 1,000 mls @ 75 mls/hr IVCONT .[id number] [facility] Last Admin: 08/22/22 09:09 Dose: 75 mls/hr Documented By: URMILA Insulin Human Lispro (Insulin Lispro 100 Unit/Ml 3 Ml Vial) 0 unit SUBCUT QIDACHS [facility]; Protocol Last Admin: 08/22/22 07:59 Dose: 8 unit Documented By: URMILA Lisinopril (Lisinopril 5 Mg Tablet) 5 mg PO DAILY [facility]; Protocol Last Admin: 08/22/22 08:01 Dose: Not Given Documented By: URMILA Non-Admin Reason: Patient Refused Meclizine HCl (Meclizine Hcl 25 Mg Tablet) 25 mg PO TID PRN PRN Reason: dizziness Mirtazapine (Mirtazapine 7.5 Mg Tablet) 7.5 mg PO BEDTIME [facility] Last Admin: 08/21/22 21:41 Dose: Not Given Documented By: ARIN Non-Admin Reason: Patient Refused Omeprazole (Omeprazole 20 Mg Wero.) 20 mg PO DAILY@0630 [facility] Last Admin: 08/22/22 06:15 Dose: 20 mg Documented By: ARIN Oxycodone HCl (Oxycodone Hcl Immed Release 5 Mg Tablet) 10 mg PO Q4H PRN PRN Reason: Pain, Moderate (Pain Scale 4-6 Pharmacy Consult (Consult Rx Perform Med Rec) 1 each MISCELLANE ONCE PRN PRN Reason: Consult order Sodium Chloride (0.9 % Sodium Chloride Flush 3 Ml Syringe) 3 ml IVFLUSH QSHIFT [facility] Last Admin: 08/22/22 01:06 Dose: 3 ml Documented By: ARIN Sumatriptan Succinate (Sumatriptan Succinate 25 Mg Tablet) 25 mg PO DAILY PRN PRN Reason: Migraine Headache Labs 08/21/22 12:38 08/21/22 12:38 Labs: Laboratory Results - last 24 hr 08/21/22 08/21/22 08/21/22 12:22 12:38 12:38 MCV 75.3 L MCH 23.9 L MCHC 31.8 RDW 14.4 Plt Count 241 MPV 10.0 Immature Gran % (Auto) 0.7 H Neut % (Auto) 71.2 Lymph % (Auto) 20.7 [place] % (Auto) 5.7 Eos % (Auto) 1.4 Baso % (Auto) 0.3 Lymph # (Auto) 1.5 [place] # (Auto) 0.4 Eos # (Auto) 0.1 Baso # (Auto) 0.0 Abs Immat Gran (auto) 0.05 H Absolute Neuts (auto) 5.1 Absolute Nucleated RBC 0.000 Nucleated RBC % (auto) 0.0 Anion Gap 15 Estim Creat Clear Calc 122.7 Estimated GFR > 60 POC Glucose Random Glucose 355 H* Calcium 9.3 D Urine Test COVID-19 (YESI) Negative COVID-19 Clin Com See Note 08/21/22 08/21/22 08/21/22 15:22 17:43 21:02 MCV MCH MCHC RDW Plt Count MPV Immature Gran % (Auto) Neut % (Auto) Lymph % (Auto) [place] % (Auto) Eos % (Auto) Baso % (Auto) Lymph # (Auto) [place] # (Auto) Eos # (Auto) Baso # (Auto) Abs Immat Gran (auto) Absolute Neuts (auto) Absolute Nucleated RBC Nucleated RBC % (auto) Anion Gap Estim Creat Clear Calc Estimated GFR POC Glucose 238 H 240 H 312 H Random Glucose Calcium Urine Test COVID-19 (YESI) COVID-[employer] 08/22/22 08/22/22 07:14 08:06 MCV MCH MCHC RDW Plt Count MPV Immature Gran % (Auto) Neut % (Auto) Lymph % (Auto) [place] % (Auto) Eos % (Auto) Baso % (Auto) Lymph # (Auto) [place] # (Auto) Eos # (Auto) Baso # (Auto) Abs Immat Gran (auto) Absolute Neuts (auto) Absolute Nucleated RBC Nucleated RBC % (auto) Anion Gap Estim Creat Clear Calc Estimated GFR POC Glucose 311 H Random Glucose Calcium Urine Test NEGATIVE COVID-19 (YESI) COVID-19 Clin Com Assessment and Plan (1) Cellulitis: Status: Acute Plan 37F PMH DM, obesity, HTN, mood disorder, hydradenitis suppurata, presented with right axilla abscess Right axillary abscess with cellulitis IV antibiotics, management per surgery Diabetes with hyperglycemia Will hold orals, cover with insulin, added basal Hypertension Lisinopril Mood disorder Fluoxetine Obesity Weight loss recommended Time Spent With Patient Time: Total time managing care of this patient today ____ minutes. Quality Stroke Does the patient have a stroke diagnosis?: No VTE Prior VTE?: No VTE Risk Level:: Medical - low VTE Device Contraindication: N/A - Device Ordered VTE Drug Contraindication: Treatment Not Indicated
[2022-08-22 11:10] LABS: Glucose, Whole Blood 241 mg/dL (60-115)
--- NOTE | 2022-08-22 12:34 | HO.ANESPROP2 ---
HPI - Anesthesia Eval Consult details Narrative: for Iand D right axilla PMFSH Active Problems Active Problems: All Active Problems (Updated 08/21/22 @ 11:38 by Teodoro Vo MD) Cellulitis (Acute) Abscess of skin or subcutaneous tissue (Acute) Abscess of right axilla (Acute) Well woman exam (Acute) Hidradenitis suppurativa of left axilla (Acute) Morbid obesity (Acute) Past Medical History Medical History Abscess of right axilla LISE II (cervical intraepithelial neoplasia II) Diabetes mellitus Headache, migraine Hidradenitis suppurativa of left axilla Morbid obesity Family History Family History Mother No problems noted. Father Hypertension Family history of problems with anesthesia: No Surgical History Surgical History H/O LEEP History of hidradenitis suppurativa Hx of tonsillectomy History of Problems with Anesthesia: No Social History Social History Household Members: Spouse Housing: Apartment Do you presently have visiting nurse or other home services: No Alcohol intake: never Patient Tobacco Use Status: Former Tobacco user Meds Allergies Allergy/AdvReac Type Severity Reaction Status Date / Time seafood Allergy Severe Anaphylaxis Verified 08/21/22 13:02 Active Medications: Current Medications Calcium Carbonate (Calcium Carbonate 750 Mg Tab.Chew) 750 mg PO BID PRN PRN Reason: dyspepsia Fluoxetine HCl (Fluoxetine Hcl 20 Mg Capsule) 20 mg PO DAILY [facility] Last Admin: 08/22/22 09:09 Dose: 20 mg Glucose (Glucose Gel 15 Gm Gel..Gram.) 15 gm PO Q15M PRN; Protocol PRN Reason: per Hypoglycemia Standing Ord. Hydroxyzine HCl (Hydroxyzine Hcl 50 Mg Tablet) 50 mg PO TID PRN PRN Reason: anxiety Piperacillin Sod/Tazobactam (Sod 3.375 gm/ Sodium Chloride) 50 mls @ 100 mls/hr IV Q6H [facility] Last Infusion: 08/22/22 06:59 Dose: Infused Dextrose (D10) 250 mls @ 750 mls/hr IV Q15M PRN; Protocol PRN Reason: per Hypoglycemia Standing Ord. Sodium Chloride (Ns) 1,000 mls @ 75 mls/hr IVCONT .[id number] [facility] Last Admin: 08/22/22 09:09 Dose: 75 mls/hr Insulin Glargine (Insulin Glargine,Hum.Rec.Anlog 100 Unit/Ml 10 Ml Vial) 15 unit SUBCUT DAILY [facility] Insulin Human Lispro (Insulin Lispro 100 Unit/Ml 3 Ml Vial) 0 unit SUBCUT QIDACHS [facility]; Protocol Last Admin: 08/22/22 11:16 Dose: Not Given Lisinopril (Lisinopril 5 Mg Tablet) 5 mg PO DAILY [facility]; Protocol Last Admin: 08/22/22 08:01 Dose: Not Given Meclizine HCl (Meclizine Hcl 25 Mg Tablet) 25 mg PO TID PRN PRN Reason: dizziness Mirtazapine (Mirtazapine 7.5 Mg Tablet) 7.5 mg PO BEDTIME [facility] Last Admin: 08/21/22 21:41 Dose: Not Given Omeprazole (Omeprazole 20 Mg Capsule.Dr) 20 mg PO DAILY@0630 [facility] Last Admin: 08/22/22 06:15 Dose: 20 mg Oxycodone HCl (Oxycodone Hcl Immed Release 5 Mg Tablet) 10 mg PO Q4H PRN PRN Reason: Pain, Moderate (Pain Scale 4-6 Pharmacy Consult (Consult Rx Perform Med Rec) 1 each MISCELLANE ONCE PRN PRN Reason: Consult order Sodium Chloride (0.9 % Sodium Chloride Flush 3 Ml Syringe) 3 ml IVFLUSH QSHIFT [facility] Last Admin: 08/22/22 01:06 Dose: 3 ml Sumatriptan Succinate (Sumatriptan Succinate 25 Mg Tablet) 25 mg PO DAILY PRN PRN Reason: Migraine Headache Home Medications Medication Instructions Recorded Confirmed Last Taken Type glipizide 10 mg tablet, extended 10 mg PO BID 10/17/21 08/21/22 08/21/22 History release 24 hr lisinopril 5 mg tablet 5 mg PO DAILY 10/17/21 08/21/22 Unknown History sitagliptin phos 100 mg-metformin 1 tab PO DAILY 04/29/22 08/21/22 Unknown History ER 1,000 mg tablet,extend rel 24h mp (Janumet XR) acetaminophen 325 mg tablet 650 mg PO Q6H PRN Pain 08/21/22 08/21/22 Unknown History canagliflozin 100 mg tablet 100 mg PO QAM 08/21/22 08/21/22 Unknown History (Invokana) fluoxetine 20 mg capsule 20 mg PO QAM 08/21/22 08/21/22 Unknown History hydroxyzine pamoate 50 mg capsule 50 mg PO TID PRN anxiety 08/21/22 08/21/22 Unknown History meclizine 25 mg tablet 25 mg PO TID PRN dizziness 08/21/22 08/21/22 Unknown History mirtazapine 7.5 mg tablet 7.5 mg PO BEDTIME 08/21/22 08/21/22 Unknown History multivitamin 1 tab PO DAILY 08/21/22 08/21/22 Unknown History oxycodone-acetaminophen 5 mg-325 1 tab PO Q4-6H PRN pain 08/21/22 08/21/22 Unknown History mg tablet sumatriptan succinate 25 mg tablet 25 mg PO DAILY PRN Migraine 08/21/22 08/21/22 Unknown History Headache Exam Exam Date and Time: August 22, 2022 1234 Height,Weight and Vital Signs: Height 5 ft 7 in Weight 107.6 kg Last Vital Signs Temp 97.9 F 08/22/22 12:31 Pulse 99 08/22/22 12:31 Resp 18 08/22/22 12:31 BP 134/76 08/22/22 12:31 Pulse Ox 98 08/22/22 12:31 O2 Del Method Room Air 08/22/22 12:31 Pertinent Lab Results Pertinent Lab Results: Laboratory Tests 08/21/22 08/21/22 08/21/22 12:22 12:38 12:38 WBC 7.2 RBC 5.43 Hgb 13.0 Hct 40.9 MCV 75.3 L MCH 23.9 L MCHC 31.8 RDW 14.4 Plt Count 241 MPV 10.0 Immature Gran % (Auto) 0.7 H Neut % (Auto) 71.2 Lymph % (Auto) 20.7 [place] % (Auto) 5.7 Eos % (Auto) 1.4 Baso % (Auto) 0.3 Lymph # (Auto) 1.5 [place] # (Auto) 0.4 Eos # (Auto) 0.1 Baso # (Auto) 0.0 Abs Immat Gran (auto) 0.05 H Absolute Neuts (auto) 5.1 Absolute Nucleated RBC 0.000 Nucleated RBC % (auto) 0.0 Sodium 136 Potassium 4.4 Chloride 102 Carbon Dioxide 23 Anion Gap 15 BUN 11 Creatinine 0.80 Estim Creat Clear Calc 122.7 Estimated GFR > 60 POC Glucose Random Glucose 355 H* Calcium 9.3 D Urine Test COVID-19 (YESI) Negative COVID-[employer] Com See Note 08/21/22 08/21/22 08/21/22 15:22 17:43 21:02 WBC RBC Hgb Hct MCV MCH MCHC RDW Plt Count MPV Immature Gran % (Auto) Neut % (Auto) Lymph % (Auto) [place] % (Auto) Eos % (Auto) Baso % (Auto) Lymph # (Auto) [place] # (Auto) Eos # (Auto) Baso # (Auto) Abs Immat Gran (auto) Absolute Neuts (auto) Absolute Nucleated RBC Nucleated RBC % (auto) Sodium Potassium Chloride Carbon Dioxide Anion Gap BUN Creatinine Estim Creat Clear Calc Estimated GFR POC Glucose 238 H 240 H 312 H Random Glucose Calcium Urine Test COVID-19 (YESI) [employer] 08/22/22 08/22/22 08/22/22 07:14 08:06 11:03 WBC RBC Hgb Hct MCV MCH MCHC RDW Plt Count MPV Immature Gran % (Auto) Neut % (Auto) Lymph % (Auto) [place] % (Auto) Eos % (Auto) Baso % (Auto) Lymph # (Auto) [place] # (Auto) Eos # (Auto) Baso # (Auto) Abs Immat Gran (auto) Absolute Neuts (auto) Absolute Nucleated RBC Nucleated RBC % (auto) Sodium Potassium Chloride Carbon Dioxide Anion Gap BUN Creatinine Estim Creat Clear Calc Estimated GFR POC Glucose 311 H 241 H Random Glucose Calcium Urine Test NEGATIVE COVID-19 (YESI) COVID-[employer] Mallampati Class: II TM Dist: >3cm Neck ROM: Full Heart: rrr Lungs: cta Assessment and Plan Assessment Anesthesia Assessment: Anesthesia Plan Discussed, Smoking Cess. Discussed and Chart Reviewed Final Anesthetic Review Family History of Problems with Anesthesia: No History of Problems with Anesthesia: No NPO: Yes ASA Class: III Final Preanesthetic Review: No Changes in Pt Med Stat, Meds/Allgs Chart Reviewed, Consent Obtained/Reviewed and Anes Risks/Benef Reviewed Anesthetic Plan Anesthetic Plan: GA and Agree w/ Assess. and Plan Disposition: Standard PACU
[2022-08-22 12:41] LABS: Glucose, Whole Blood 236 mg/dL (60-115)
--- NOTE | 2022-08-22 12:45 | PC.NURSE ---
DR. Fernando. aware of poc and stated okay to proceed. Re-check to be completed in PACU.
--- NOTE | 2022-08-22 13:16 | W.PM.OPN ---
Operative Note Operative Note Date of Service: 08/22/22 Narrative: Preop diagnosis: Right axillary abscess with cellulitis Postop diagnosis: The same Procedure: Incision and drainage, excisional debridement of skin and subcutaneous fat for a right axillary abscess Surgeon: Nadeem Ceballos MD The patient is a 37-year-old female, diabetic, who was admitted yesterday because of a right axillary abscess, with significant cellulitis. I explained to her it would be best to proceed with I and D in the operating room because of the amount of induration and cellulitis. I reviewed the technique of this procedure. I explained the risks, benefits, and alternatives. She was brought to the operating room. She was placed supine under general anesthesia via laryngeal mask airway. The right arm was abducted to expose the axilla. This area was prepped and draped in these was sterile fashion. A surgical time-out was done. The patient was receiving scheduled antibiotics by IV. There was note of a wide induration along with cellulitis on the axilla. The induration measured about 8 cm across. There was note of a central fluctuance. I used a blade 15 to make a generous incision on the an overlying this fluctuant area. An abscess cavity was entered. Cultures were taken. I extended the incision to expose this entire indurated area. The deep subcutaneous tissue also appeared to be markedly indurated although there was no necrotic tissue or gangrenous process. I debrided this using scissors and unroof this cavity. The incision was about 4 cm long I irrigated the open area which involved the deep subcutaneous tissue. I applied 1 inch iodoform packing. I applied dry dressings on top. I infiltrated the area with Marcaine 0.5% for postop old YAMILE. The procedure was completed. The patient tolerated procedure well. There were no immediate complications. Initial and final counts of sponges and instruments were correct. Estimated blood loss was about 25 cc. The patient was extubated without difficulty and transferred to recovery room in stable signs. Breast [place] Node Biopsy All colored nodes or non-colored nodes present at the end of a dye filled lymphatic channel were removed, if dye was used as the substrate for localization: N/A General Surg. - Synoptic Notes Breast [place] Node Biopsy All colored nodes or non-colored nodes present at the end of a dye filled lymphatic channel were removed, if dye was used as the substrate for localization: N/A
[2022-08-22 13:31] LABS: Glucose, Whole Blood 243 mg/dL (60-115)
[2022-08-22] MEDS: oxyCODONE HCl Immed Release 5 MG TABLET 10 MG PO (13:48)
--- NOTE | 2022-08-22 14:26 | PM.EVENT ---
Event Note Date of Service: 08/22/22 Event Note: Seen postop She underwent I and D of abscess from the right axilla Seems to have adequate pain control Dressings dry Packing in place IV antibiotics Appreciate hospitalist follow-up for diabetes Time Spent With Patient Time: Total time managing care of this patient today ____ minutes.
[2022-08-22] MEDS: Insulin Glargine,Hum.rec.anlog 100 UNIT/ML 10 ML VIAL 15 UNIT SUBCUT (14:44)
--- NOTE | 2022-08-22 14:52 | MHC.CM.PN ---
08/22/22 Female DX Axillary abscess surgical intervention. She lives with her spouse. She is independent with all functional mobility. Vaxxed x 3. Declined offer to document a HCP. DP home self care. Patient will provide transport home.
[2022-08-22 16:52] LABS: Glucose, Whole Blood 278 mg/dL (60-115)
[2022-08-22] MEDS: Acetaminophen 325 MG TABLET 650 MG PO (18:38)
[2022-08-22 20:35] LABS: Glucose, Whole Blood 277 mg/dL (60-115)
[2022-08-22] MEDS: SUMAtriptan succinate 25 MG TABLET PO (22:53)
[2022-08-23] MEDS: Piperacillin Sodium/Tazobactam 3.375 GM in 0.9 % Sodium Chloride 50 ML IV ×3 (00:38→13:20)
[2022-08-23] MEDS: Acetaminophen 325 MG TABLET 650 MG PO (03:53)
[2022-08-23] MEDS: oxyCODONE HCl Immed Release 5 MG TABLET 10 MG PO (03:53)
[2022-08-23 03:56] VITALS: BP 132/75; PULSE 97; RESP 16; TEMP 36.5; O2SAT 96
[2022-08-23] MEDS: Omeprazole 20 MG CAPSULE.DR PO (06:05)
[2022-08-23 07:38] LABS: Glucose, Whole Blood 306 mg/dL (60-115)
[2022-08-23 08:00] VITALS: BP 131/72; PULSE 88; RESP 16; TEMP 37.1; O2SAT 95
[2022-08-23] MEDS: Insulin Glargine,Hum.rec.anlog 100 UNIT/ML 10 ML VIAL 15 UNIT SUBCUT (08:03)
[2022-08-23] MEDS: Insulin Lispro 100 UNIT/ML 3 ML VIAL SUBCUT ×3 (08:03→12:26)
[2022-08-23] MEDS: FLUoxetine HCl 20 MG CAPSULE PO (08:03)
[2022-08-23] MEDS: 0.9 % Sodium Chloride Flush 3 ML SYRINGE IVFLUSH (08:03)
--- NOTE | 2022-08-23 08:15 | P.PNGS_ITS ---
Subjective Subjective Date of Service: 08/23/22 Interval history: Right axillary pain much better says she feels well overall she does state that her blood sugars have been high Physical Exam Vital Signs: Vital Signs: Last Vital Signs Temp 98.7 F 08/23/22 08:00 Pulse 88 08/23/22 08:00 Resp 16 08/23/22 08:00 BP 131/72 08/23/22 08:00 Pulse Ox 95 08/23/22 08:00 O2 Del Method Room Air 08/23/22 08:00 BMI result Body Mass Index 37.1 Const: General: comfortable and no acute distress Resp: Effort & Inspection: normal respiratory effort Cardio: Rate: regular rate GI: Palpation (GI): Soft to palpation Extrem: Other: right axilla - I&D site with packing, induration much improved, cellulitis has faded significantly, some significant tenderness Objective Data Active Medications Acetaminophen (Acetaminophen 325 Mg Tablet) 650 mg PO Q6H PRN PRN Reason: moderate pain Last Admin: 08/23/22 03:53 Dose: 650 mg Documented By: ZARI Calcium Carbonate (Calcium Carbonate 750 Mg Tab.Chew) 750 mg PO BID PRN PRN Reason: dyspepsia Fluoxetine HCl (Fluoxetine Hcl 20 Mg Capsule) 20 mg PO DAILY [facility] Last Admin: 08/23/22 08:03 Dose: 20 mg Documented By: COTEMA Glucose (Glucose Gel 15 Gm Gel..Gram.) 15 gm PO Q15M PRN; Protocol PRN Reason: per Hypoglycemia Standing Ord. Hydromorphone HCl (Hydromorphone Hcl 0.5 Mg/0.5 Ml Syringe) 0.25 mg IVPUSH Q5M PRN; Protocol PRN Reason: Pain, Severe (Pain Scale 7-10) Hydroxyzine HCl (Hydroxyzine Hcl 50 Mg Tablet) 50 mg PO TID PRN PRN Reason: anxiety Piperacillin Sod/Tazobactam (Sod 3.375 gm/ Sodium Chloride) 50 mls @ 100 mls/hr IV Q6H [facility] Last Infusion: 08/23/22 06:43 Dose: 0 mls/hr Documented By: YARY Dextrose (D10) 250 mls @ 750 mls/hr IV Q15M PRN; Protocol PRN Reason: per Hypoglycemia Standing Ord. Insulin Glargine (Insulin Glargine,Hum.Rec.Anlog 100 Unit/Ml 10 Ml Vial) 15 unit SUBCUT DAILY [facility] Last Admin: 08/23/22 08:03 Dose: 15 unit Documented By: URMILA Insulin Human Lispro (Insulin Lispro 100 Unit/Ml 3 Ml Vial) 0 unit SUBCUT QIDACHS [facility]; Protocol Last Admin: 08/23/22 08:03 Dose: 8 unit Documented By: URMILA Lisinopril (Lisinopril 5 Mg Tablet) 5 mg PO DAILY [facility]; Protocol Last Admin: 08/23/22 07:55 Dose: Not Given Documented By: URMILA Non-Admin Reason: Patient Refused Meclizine HCl (Meclizine Hcl 25 Mg Tablet) 25 mg PO TID PRN PRN Reason: dizziness Mirtazapine (Mirtazapine 7.5 Mg Tablet) 7.5 mg PO BEDTIME [facility] Last Admin: 08/22/22 20:57 Dose: Not Given Documented By: MACIE Non-Admin Reason: Patient Refused Omeprazole (Omeprazole 20 Mg Capsule.) 20 mg PO DAILY@0630 [facility] Last Admin: 08/23/22 06:05 Dose: 20 mg Documented By: MACIE Ondansetron HCl (Ondansetron Hcl 4 Mg/2 Ml Vial) 4 mg IVPUSH ONCE PRN PRN Reason: Nausea and Vomiting Oxycodone HCl (Oxycodone Hcl Immed Release 5 Mg Tablet) 10 mg PO Q4H PRN PRN Reason: Pain, Moderate (Pain Scale 4-6 Last Admin: 08/23/22 03:53 Dose: 10 mg Documented By: ZARI Oxycodone HCl (Oxycodone Hcl Immed Release 5 Mg Tablet) 5 mg PO ONCE PRN PRN Reason: Pain, Severe (Pain Scale 7-10) Pharmacy Consult (Consult Rx Perform Med Rec) 1 each MISCELLANE ONCE PRN PRN Reason: Consult order Sodium Chloride (0.9 % Sodium Chloride Flush 3 Ml Syringe) 3 ml IVFLUSH QSHIFT [facility] Last Admin: 08/23/22 08:03 Dose: 3 ml Documented By: URMILA Sumatriptan Succinate (Sumatriptan Succinate 25 Mg Tablet) 25 mg PO DAILY PRN PRN Reason: Migraine Headache Last Admin: 08/22/22 22:53 Dose: 25 mg Documented By: MACIE Labs 08/21/22 12:38 08/21/22 12:38 Labs: Laboratory Results - last 24 hr 08/22/22 08/22/22 08/22/22 08:06 11:03 12:37 POC Glucose 241 H 236 H Urine Test NEGATIVE 08/22/22 08/22/22 08/22/22 13:27 16:47 20:31 POC Glucose 243 H 278 H 277 H Urine Test 08/23/22 07:35 POC Glucose 306 H Urine Test Microbiology Microbiology Results: Microbiology 08/22/22 Unknown Gram Stain - Final Axilla Right 08/21/22 12:38 Blood Culture - Preliminary Blood - Venous No growth after 24 hours. 08/21/22 12:38 Blood Culture - Preliminary Blood - Venous No growth after 24 hours. Procedures Date of Service Date of Service: 08/23/22 Progress Note: A&P Assessment and plan (1) Abscess of right axilla: Status: Acute Assessment and Plan: status post I&D and debridement I pulled out the packing a little bit much improved no fever possibly home later today oral antibiotics follow-up cultures will does with hospitalist regarding blood sugars Time Spent With Patient Time: Total time managing care of this patient today ____ minutes. Quality Stroke Does the patient have a stroke diagnosis?: No VTE Prior VTE?: No VTE Risk Level:: Medical - low VTE Device Contraindication: N/A - Device Ordered VTE Drug Contraindication: Treatment Not Indicated
--- NOTE | 2022-08-23 09:18 | HO.PM.IMPN ---
Subjective Subjective Date of Service: 08/23/22 Interval History: improving Physical Exam Vital Signs: Vital Signs: Last Vital Signs Temp 98.7 F 08/23/22 08:00 Pulse 88 08/23/22 08:00 Resp 16 08/23/22 08:00 BP 131/72 08/23/22 08:00 Pulse Ox 95 08/23/22 08:00 O2 Del Method Room Air 08/23/22 08:00 BMI result Body Mass Index 37.1 Const: General: comfortable and no acute distress Resp: Effort & Inspection: normal respiratory effort Cardio: Rate: regular rate GI: Palpation (GI): Soft to palpation Extrem: Other: right axilla - I&D site with packing, induration much improved, cellulitis has faded significantly, some significant tenderness Objective Data Active Medications Acetaminophen (Acetaminophen 325 Mg Tablet) 650 mg PO Q6H PRN PRN Reason: moderate pain Last Admin: 08/23/22 03:53 Dose: 650 mg Documented By: ZARI Calcium Carbonate (Calcium Carbonate 750 Mg Tab.Chew) 750 mg PO BID PRN PRN Reason: dyspepsia Fluoxetine HCl (Fluoxetine Hcl 20 Mg Capsule) 20 mg PO DAILY [facility] [place] Last Admin: 08/23/22 08:03 Dose: 20 mg Documented By: COTEMA Glucose (Glucose Gel 15 Gm Gel..Gram.) 15 gm PO Q15M PRN; Protocol PRN Reason: per Hypoglycemia Standing Ord. Hydromorphone HCl (Hydromorphone Hcl 0.5 Mg/0.5 Ml Syringe) 0.25 mg IVPUSH Q5M PRN; Protocol PRN Reason: Pain, Severe (Pain Scale 7-10) Hydroxyzine HCl (Hydroxyzine Hcl 50 Mg Tablet) 50 mg PO TID PRN PRN Reason: anxiety Piperacillin Sod/Tazobactam (Sod 3.375 gm/ Sodium Chloride) 50 mls @ 100 mls/hr IV Q6H [facility] [place] Last Infusion: 08/23/22 06:43 Dose: 0 mls/hr Documented By: LUKEQC Dextrose (D10) 250 mls @ 750 mls/hr IV Q15M PRN; Protocol PRN Reason: per Hypoglycemia Standing Ord. Insulin Glargine (Insulin Glargine,Hum.Rec.Anlog 100 Unit/Ml 10 Ml Vial) 15 unit SUBCUT DAILY [facility] [place] Last Admin: 08/23/22 08:03 Dose: 15 unit Documented By: URMILA Insulin Human Lispro (Insulin Lispro 100 Unit/Ml 3 Ml Vial) 0 unit SUBCUT QIDACHS [facility] [place]; Protocol Last Admin: 08/23/22 08:03 Dose: 8 unit Documented By: URMILA Lisinopril (Lisinopril 5 Mg Tablet) 5 mg PO DAILY [facility] [place]; Protocol Last Admin: 08/23/22 07:55 Dose: Not Given Documented By: URMILA Non-Admin Reason: Patient Refused Meclizine HCl (Meclizine Hcl 25 Mg Tablet) 25 mg PO TID PRN PRN Reason: dizziness Mirtazapine (Mirtazapine 7.5 Mg Tablet) 7.5 mg PO BEDTIME [facility] [place] Last Admin: 08/22/22 20:57 Dose: Not Given Documented By: MACIE Non-Admin Reason: Patient Refused Omeprazole (Omeprazole 20 Mg Capsule.) 20 mg PO DAILY@0630 [facility] [place] Last Admin: 08/23/22 06:05 Dose: 20 mg Documented By: MACIE Ondansetron HCl (Ondansetron Hcl 4 Mg/2 Ml Vial) 4 mg IVPUSH ONCE PRN PRN Reason: Nausea and Vomiting Oxycodone HCl (Oxycodone Hcl Immed Release 5 Mg Tablet) 10 mg PO Q4H PRN PRN Reason: Pain, Moderate (Pain Scale 4-6 Last Admin: 08/23/22 03:53 Dose: 10 mg Documented By: ZARI Oxycodone HCl (Oxycodone Hcl Immed Release 5 Mg Tablet) 5 mg PO ONCE PRN PRN Reason: Pain, Severe (Pain Scale 7-10) Pharmacy Consult (Consult Rx Perform Med Rec) 1 each MISCELLANE ONCE PRN PRN Reason: Consult order Sodium Chloride (0.9 % Sodium Chloride Flush 3 Ml Syringe) [facility] Admin: 08/23/22 08:03 Dose: 3 ml Documented By: URMILA Sumatriptan Succinate (Sumatriptan Succinate 25 Mg Tablet) 25 mg PO DAILY PRN PRN Reason: Migraine Headache Last Admin: 08/22/22 22:53 Dose: 25 mg Documented By: MAICE Labs 08/21/22 12:38 08/21/22 12:38 Labs: Laboratory Results - last 24 hr 08/22/22 08/22/22 08/22/22 11:03 12:37 13:27 POC Glucose 241 H 236 H 243 H 08/22/22 08/22/22 08/23/22 16:47 20:31 07:35 POC Glucose 278 H 277 H 306 H Microbiology Microbiology Results: Microbiology 08/22/22 Unknown Gram Stain - Final Axilla Right 08/21/22 12:38 Blood Culture - Preliminary Blood - Venous No growth after 24 hours. 08/21/22 12:38 Blood Culture - Preliminary Blood - Venous No growth after 24 hours. Assessment and Plan (1) Cellulitis: Status: Acute Plan 37F PMH DM, obesity, HTN, mood disorder, hydradenitis suppurata, presented with right axilla abscess Right axillary abscess with cellulitis IV antibiotics, management per surgery Diabetes with hyperglycemia Will hold orals, cover with insulin, added basal 15units and addidtional 5units preprandial plus correction Hypertension Lisinopril Mood disorder Fluoxetine Obesity Weight loss recommended Time Spent With Patient Time: Total time managing care of this patient today ____ minutes. Quality Stroke Does the patient have a stroke diagnosis?: No VTE Prior VTE?: No VTE Risk Level:: Medical - low VTE Device Contraindication: N/A - Device Ordered VTE Drug Contraindication: Treatment Not Indicated
[2022-08-23 11:17] LABS: Glucose, Whole Blood 278 mg/dL (60-115)
--- NOTE | 2022-08-23 12:45 | HO.POSTANES ---
Post Anesthesia Evaluation Post Anesthesia Evaluation Vital Signs: Vital Signs Temp Pulse Resp BP Pulse Ox O2 Del Method 08/23/22 08:00 98.7 F 88 16 131/72 95 Room Air 08/23/22 03:56 97.7 F 97 16 132/75 96 Room Air Anesthesia: General Mental Status: Awake Pain Control: Satisfactory Nausea/Vomiting: None Hydration: Adequate Anesthesia-Related Issues: No Anes. Related Issues
--- NOTE | 2022-08-23 12:52 | PM.EVENT ---
Event Note Date of Service: 08/23/22 Event Note: feels well pain well controlled she wants to go home cultures pending, gm stain - no organisms will dc home on AUgmentin instructed on wound care, remove packing tomorrow will see in office for ffup dw Hospitalist Time Spent With Patient Time: Total time managing care of this patient today ____ minutes.
--- NOTE | 2022-08-23 13:04 | MHC.CM.PN ---
pt dcd home no skilled servceis ordered by
--- NOTE | 2022-08-26 15:57 | PM.DS ---
DS: Providers Provider Date of Service: 08/21/22 Date of admission: 08/21/22 13:07 Date of discharge: 08/23/22 Primary care physician: Jennifer Rahman MD Consults: 08/21/22 13:13 Consult to Hospitalist Routine Consulting Provider: Hospitalist Reason For Exam: DM, HTN DS: Diagnosis Discharge Diagnosis (1) Cellulitis: Status: Acute (2) Abscess of skin or subcutaneous tissue: Status: Acute DS: Summary Hospital Course Hospital Course: 37-year-old female, diabetic, who was admitted because of a right axillary abscess with significant cellulitis, on 08/21/2022. She has a history hidradenitis suppurative of the left axilla. I had done an I and D in the office but in view of the severe cellulitis, admitted her for IV antibiotics. She was started on IV Zosyn. Her blood sugars were markedly elevated as well. A hospitalist consult was done. Because of the persistence of severe induration and redness, I brought her to the operating room on 08/22/2022 and proceeded to do I and D and debridement of the right axillary abscess. A light packing was placed. She did well postoperatively. I pulled out the packing partly on 08/23/2022. The swelling, induration and redness had improved significantly. She had good pain control. She was restarted on her diabetes medications. She was discharged on 08/23/2022 with wound care instructions. Time Spent with Patient Time attestation: Total time managing care of this patient today ____ minutes. Discharge coordination time: Less than 30 minutes Quality: Safe Use of Opioids Does Pt have an Active Cancer Diagnosis on the Problem List?: No Quality: Stroke Does the patient have a stroke diagnosis?: No Physical Exam Vital Signs: Vital Signs: Last Vital Signs Temp 98.7 F 08/23/22 08:00 Pulse 88 08/23/22 08:00 Resp 16 08/23/22 08:00 BP 131/72 08/23/22 08:00 Pulse Ox 95 08/23/22 08:00 O2 Del Method Room Air 08/23/22 13:28 BMI result Body Mass Index 37.1 Const: Other: Obese General: comfortable and no acute distress Orientation/consciousness: patient oriented x3 Neck: Neck: Yes no lymphadenopathy Resp: Auscultation: clear to auscultation bilaterally Cardio: Rhythm: regular rhythm GI: Palpation (GI): Soft to palpation, nontender and no guarding Neuro: General: patient oriented x3 Extrem: Other: Right axillary I&D site much less indurated, no cellulitis, packing left in place DS: Data Data Completed and Pending Completed studies during hospitalization [Text1]: Pending at discharge 08/22/22 13:08 Surgical [PTH] Routine Procedures Excision of Right Upper Arm Subcutaneous Tissue and Fascia, Open Approach (08/21/22) Laboratory Results WBC 7.2 X10*3/uL (4.8-10.8) 08/21/22 12:38 RBC 5.43 X10*6/uL (4.20-5.50) 08/21/22 12:38 Hgb 13.0 g/dl (12.0-16.0) 08/21/22 12:38 Hct 40.9 % (37.0-47.0) 08/21/22 12:38 MCV 75.3 fL (80.0-98.0) L 08/21/22 12:38 MCH 23.9 pg (27.0-33.0) L 08/21/22 12:38 MCHC 31.8 g/dl (31.0-35.0) 08/21/22 12:38 RDW 14.4 % (11.0-16.0) 08/21/22 12:38 Plt Count 241 X10*3/uL (160-400) 08/21/22 12:38 MPV 10.0 fL (9.4-12.3) 08/21/22 12:38 Immature Gran % (Auto) 0.7 % (0.0-0.4) H 08/21/22 12:38 Neut % (Auto) 71.2 % (45-73) 08/21/22 12:38 Lymph % (Auto) 20.7 % (20-40) 08/21/22 12:38 Hendry % (Auto) 5.7 % (2-11) 08/21/22 12:38 Eos % (Auto) 1.4 % (0-4) 08/21/22 12:38 Baso % (Auto) 0.3 % (0-2) 08/21/22 12:38 Lymph # (Auto) 1.5 X10*3/uL (1.2-4.9) 08/21/22 12:38 Hendry # (Auto) 0.4 X10*3/uL (0.1-1.2) 08/21/22 12:38 Eos # (Auto) 0.1 X10*3/uL (0.0-0.4) 08/21/22 12:38 Baso # (Auto) 0.0 X10*3/uL (0.0-0.2) 08/21/22 12:38 Abs Immat Gran (auto) 0.05 X10*3/uL (0.00-0.03) H 08/21/22 12:38 Absolute Neuts (auto) 5.1 x10*3/uL (2.0-8.3) 08/21/22 12:38 Absolute Nucleated RBC 0.000 X10*3/uL (0.0-0.012) 08/21/22 12:38 Nucleated RBC % (auto) 0.0 /100WBC (0.0-0.2) 08/21/22 12:38 Sodium 136 mmol/L (135-145) 08/21/22 12:38 Potassium 4.4 mmol/L (3.3-5.1) 08/21/22 12:38 Chloride 102 mmol/L (96-108) 08/21/22 12:38 Carbon Dioxide 23 mmol/L (22-29) 08/21/22 12:38 Anion Gap 15 (12-20) 08/21/22 12:38 BUN 11 mg/dL (9-16) 08/21/22 12:38 Creatinine 0.80 mg/dL (0.5-1.4) 08/21/22 12:38 Estim Creat Clear Calc 122.7 08/21/22 12:38 Estimated GFR > 60 08/21/22 12:38 POC Glucose 278 mg/dL (60-115) H 08/23/22 11:13 Random Glucose 355 mg/dL (60-115) H* 08/21/22 12:38 Calcium 9.3 mg/dL (8.4-10.2) D 08/21/22 12:38 Urine Test NEGATIVE (NEGATIVE) 08/22/22 08:06 COVID-19 (YESI) Negative (Negative) 08/21/22 12:22 COVID-19 Clin Com See Note 08/21/22 12:22 Discharge Plan Discharge Anticipated Discharge Date/Time: 08/23/22 12:51 Patient Disposition: Home, Self-Care Discharge Diagnosis: right axillary abscess Referrals: Jennifer Escobar MD [Primary Care Provider] - 1 Week Nadeem Ceballos MD [Physician] - 1 Week Discharge Medications: New amoxicillin-pot clavulanate [Augmentin] 500-125 mg tablet 1 tab PO BID Qty: 14 0RF tramadol 50 mg tablet 50 mg PO Q6H PRN (Reason: pain) Qty: 30 0RF Continued calcium carbonate [Tums] 200 mg calcium (500 mg) tablet,chewable 200 mg PO BID PRN (Reason: dyspepsia) Qty: 30 0RF omeprazole 20 mg capsule,delayed release(DR/EC) 20 mg PO DAILY Qty: 30 0RF hydroxyzine pamoate 50 mg capsule 50 mg PO TID PRN (Reason: anxiety) meclizine 25 mg tablet 25 mg PO TID PRN (Reason: dizziness) fluoxetine 20 mg capsule 20 mg PO QAM mirtazapine 7.5 mg tablet 7.5 mg PO BEDTIME multivitamin Tablet 1 tab PO DAILY acetaminophen 325 mg Tablet 650 mg PO Q6H PRN (Reason: Pain) sumatriptan succinate 25 mg tablet 25 mg PO DAILY PRN (Reason: Migraine Headache) oxycodone-acetaminophen 5-325 mg tablet 1 tab PO Q4-6H PRN (Reason: pain) Invokana 100 mg tablet 100 mg PO QAM Janumet XR 100-1,000 mg tablet, ER multiphase 24 hr 1 tab PO DAILY glipizide 10 mg tablet extended release 24hr 10 mg PO BID lisinopril 5 mg tablet 5 mg PO DAILY Discharge Orders: Discharge Order (Routine); Ordered 08/23/22 Ordered By: Nadeem Ceballos Diet: Diabetic diet Activity on Discharge: No heavy lifting Stand Alone Forms: Patient Portal Discharge page Activity Restrictions/Additional Instructions: Follow up in office in a week. ([phone]) - call office for ffup removed the entire packing tomorrow August 24 Dry gauze to I&D site while open and draining. Call Your Doctor If: ? ? -Your temperature exceeds 101.5? F? ? ? -You experience excessive pain or swelling ? ? -You have an unexpected reaction to medication ? ? -You experience continued vomiting/nausea Care Plan Goals: Return to baseline health. Resolution of abscess and wound healing. Health Concerns: right axillary abscess Plan of Treatment: s/p I&D, IV abx Oral antibiotics F/u in office, wound care Assessment: Improved Discharge Date/Time: 08/23/22 14:47
== END 2022-08-23 14:47 | disposition home or self-care (01) | DRG 383 ==
LOC: HO.ED 11:45 → HO.EDOVER 13:19 → HO.S3 18:52
PROVIDERS: Anesthesiology; Admitting Provider Surgery; Emergency Provider Emergency Medicine; PCP Internal Medicine; Visit Provider Surgery
PROC: 0JBD0ZZ Excision of Right Upper Arm Subcutaneous Tissue and Fascia, Open Approach (ICD-10-PCS; CPT 10061; principal; 2022-08-22 12:40)
DX: L02.411 Cutaneous abscess of right axilla (principal); E11.65 Type 2 diabetes mellitus with hyperglycemia; E66.9 Obesity, unspecified; F39 Unspecified mood [affective] disorder; L03.111 Cellulitis of right axilla; L73.2 Hidradenitis suppurativa; Z20.822 Contact with and (suspected) exposure to COVID-19; Z68.37 Body mass index [BMI] 37.0-37.9, adult; Z87.891 Personal history of nicotine dependence; Z79.84 Long term (current) use of oral hypoglycemic drugs; Z79.899 Other long term (current) drug therapy
CPT/HCPCS: 10061; 11042; 36415; 80048; 81025; 82947; 85025; 87040; 87070; 87077; 87186; 87205; 87635; 88304; 99221; 99285; J1170; J2250; J2405; J2543; J2795; J3010

== ENCOUNTER → 2022-08-29 10:02 | Outpatient (BNVA) | payer MEDICAID, SELFPAY | PROVIDERS: PCP Internal Medicine; Visit Provider Surgery | DX: L73.2 Hidradenitis suppurativa (principal) | CPT/HCPCS: 99212 ==

== ENCOUNTER 2022-09-24 09:20 | Day surgery (SDC) | payer MEDICAID, SELFPAY ==
--- NOTE | 2022-09-23 09:18 | HO.ANESPROP2 ---
Documented by User: Ina Marquez NP 09/23/22 09:25 HPI - Anesthesia Eval Consult details Narrative: 37yo F for Right Excision Hidradenitis Right axilla s/p same 07/2022 with GA-LMA 4 PMFSH Active Problems Active Problems: All Active Problems (Updated 08/29/22 @ 10:51 by Nadeem Ceballos MD) Well woman exam (Acute) Hidradenitis suppurativa of right axilla (Acute) Hidradenitis suppurativa of left axilla (Acute) Morbid obesity (Acute) Past Medical History Medical History Abscess of right axilla LISE II (cervical intraepithelial neoplasia II) Diabetes mellitus Headache, migraine Hidradenitis suppurativa of left axilla Hidradenitis suppurativa of right axilla Morbid obesity Family History Family History Mother No problems noted. Father Hypertension Family history of problems with anesthesia: No Surgical History Surgical History (Updated 09/19/22 @ 16:23 by Kathy Thomas, RN) H/O LEEP History of hidradenitis suppurativa History of incision and drainage Hx of tonsillectomy History of Problems with Anesthesia: No Social History Social History Household Members: Spouse Housing: Apartment Do you presently have visiting nurse or other home services: No Alcohol intake: never Patient Tobacco Use Status: Former Tobacco user Are you DNR?: No Advance Directives: No Advance Directives Information Provided: Yes service: No Current occupational status: employed Meds Allergies Allergy/AdvReac Type Severity Reaction Status Date / Time seafood Allergy Severe Anaphylaxis Verified 09/19/22 16:23 Home Medications Medication Instructions Recorded Confirmed Last Taken Type glipizide 10 mg tablet, extended 10 mg PO BID 10/17/21 08/29/22 09/23/22 History release 24 hr lisinopril 5 mg tablet 5 mg PO DAILY 10/17/21 09/19/22 09/23/22 History sitagliptin phos 100 mg-metformin 1 tab PO DAILY 04/29/22 09/19/22 09/23/22 History ER 1,000 mg tablet,extend rel 24h mp (Janumet XR) canagliflozin 100 mg tablet 100 mg PO QAM 08/21/22 09/19/22 09/23/22 History (Invokana) fluoxetine 20 mg capsule 20 mg PO QAM 08/21/22 09/19/22 09/23/22 History hydroxyzine pamoate 50 mg capsule 50 mg PO TID PRN anxiety 08/21/22 09/19/22 09/23/22 History Exam Exam Date and Time: September 23, 2022 0918 Pertinent Lab Results Pertinent Lab Results: Laboratory Tests 08/21/22 08/21/22 12:38 12:38 WBC 7.2 Hgb 13.0 Hct 40.9 Plt Count 241 Sodium 136 Potassium 4.4 Chloride 102 Carbon Dioxide 23 BUN 11 Creatinine 0.80 Narrative Narrative: EKG 04/2022 Vent. Rate : 095 BPM ? ? Atrial Rate : 095 BPM ?? P-R Int : 168 ms? QRS Dur : 084 ms ? ? QT Int : 354 ms ? ? ? P-R-T Axes : 041 -05 023 degrees ?? QTc Int : 444 ms ? Normal sinus rhythm Minimal voltage criteria for LVH, may be normal variant ( R in aVL ) Borderline ECG Assessment and Plan Assessment Anesthesia Assessment: Chart Reviewed Final Anesthetic Review Family History of Problems with Anesthesia: No History of Problems with Anesthesia: No Documented by User: Beto Mccray MD 09/24/22 11:30 [facility] Past Medical History Medical History Abscess of right axilla LISE II (cervical intraepithelial neoplasia II) Diabetes mellitus Headache, migraine Hidradenitis suppurativa of left axilla Hidradenitis suppurativa of right axilla Morbid obesity Family History Family History Mother No problems noted. Father Hypertension Surgical History Surgical History (Updated 09/19/22 @ 16:23 by Kathy Thomas RN) H/O LEEP History of hidradenitis suppurativa History of incision and drainage Hx of tonsillectomy Social History Social History Household Members: Spouse Housing: Apartment Do you presently have visiting nurse or other home services: No Alcohol intake: never Patient Tobacco Use Status: Former Tobacco user Are you DNR?: No Advance Directives: No Advance Directives Information Provided: Yes service: No Current occupational status: employed Meds Allergies Allergy/AdvReac Type Severity Reaction Status Date / Time seafood Allergy Severe Anaphylaxis Verified 09/19/22 16:23 Home Medications Medication Instructions Recorded Confirmed Last Taken Type glipizide 10 mg tablet, extended 10 mg PO BID 10/17/21 08/29/22 09/23/22 History release 24 hr lisinopril 5 mg tablet 5 mg PO DAILY 10/17/21 09/19/22 09/23/22 History sitagliptin phos 100 mg-metformin 1 tab PO DAILY 04/29/22 09/19/22 09/23/22 History ER 1,000 mg tablet,extend rel 24h mp (Janumet XR) canagliflozin 100 mg tablet 100 mg PO QAM 08/21/22 09/19/22 09/23/22 History (Invokana) fluoxetine 20 mg capsule 20 mg PO QAM 08/21/22 09/19/22 09/23/22 History hydroxyzine pamoate 50 mg capsule 50 mg PO TID PRN anxiety 08/21/22 09/19/22 09/23/22 History Exam Airway Mallampati Class: II TM Dist: >3cm Neck ROM: Full Heart: rrr Lungs: cta Assessment and Plan Assessment Anesthesia Assessment: Anesthesia Plan Discussed Final Anesthetic Review NPO: Yes ASA Class: III Final Preanesthetic Review: No Changes in Pt Med Stat, Meds/Allgs Chart Reviewed, Consent Obtained/Reviewed and Anes Risks/Benef Reviewed Patient Risk: Intermediate Procedure Risk: Low Anesthetic Plan Anesthetic Plan: GA and Agree w/ Assess. and Plan Disposition: Standard PACU
[2022-09-24] VITALS (7 sets, daily range): BP systolic 128–142; BP diastolic 80–85; PULSE 87–101; RESP 12–18; TEMP 36.3–37; O2SAT 93–98; BMI 38.2
[2022-09-24 09:35] LABS: Glucose, Whole Blood 257 mg/dL (60-115)
[2022-09-24 10:02] LABS: UPreg QC Valid YES; Urine Pregnancy NEGATIVE (NEGATIVE)
[2022-09-24] MEDS: Lactated Ringers 1,000 ML 100 ML IVCONT (10:11)
[2022-09-24] MEDS: Insulin Lispro 100 UNIT/ML 3 ML VIAL 8 UNIT SUBCUT (10:12)
--- NOTE | 2022-09-24 11:14 | MHC.SHP ---
Pre-Procedural Eval Section A Date of Service: 09/24/22 The patient is an INPATIENT: No Changes since office visit: Yes Cold of Flu in the past 2 weeks, Yes New Medical Problems, Yes Changes in Medication and Yes Patient answered all questions The History & Physical has been completed within 30 days and I have reviewed it.: Yes Section B Chief Complaint: Hidradenitis suppurativa Allergies: Allergies Allergy/AdvReac Type Severity Reaction Status Date / Time seafood Allergy Severe Anaphylaxis Verified 09/19/22 16:23 Plan I have reviewed the history and physical and performed a pertinent physical examination on my patient. No changes have occurred unless specified. Time Spent With Patient Time: Total time managing care of this patient today ____ minutes.
--- NOTE | 2022-09-24 12:22 | P.OP_ITS ---
Operative Note Operative Note Date of Service: 09/24/22 Narrative: Preop diagnosis: Hidradenitis suppurativa, right axilla Postop diagnosis: The same Procedure: Excision of hidradenitis suppurativa, right axilla Surgeon: Nadeem Ceballos MD engineering inspection assistant: BARBARA Ivan The patient is a 37-year-old female with known hidradenitis suppurativa of right axilla, requiring an I and D for large abscess along with debridement last July 2022. She has had persistent induration and drainage and she wanted to proceed with excision of this hidradenitis suppurativa. She understood the technique of the planned procedure. She was aware of the risks, benefits, and alternatives. She was brought to the operating room. She was placed supine under general anesthesia via laryngeal mask airway. The right arm was abducted to expose the axilla. There was note of sinuses along with induration in the right axilla. This area was prepped and draped. Lidocaine 1% was used for local anesthesia. A surgical time-out had been done and the patient had received cefazolin 2 g IV preoperatively. I made an incision on the skin elliptically around this areas of induration and sinuses using a blade 15. This was carried down with electrocautery through the full-thickness of the skin and subcutaneous fat. I excised all the indurated and diseased skin and subcutaneous tissue. This was sent as a specimen. The excised defect was about 12 cm long and about 3 cm wide I Re gait aid. I used electrocautery for hemostasis. Once hemostasis was confirmed, I reapposed the deep subcutaneous tissue with Dexon 2-0 simple interrupted sutures. Skin closure was achieved with nylon 3-0 simple interrupted sutures. The area was infiltrated with Marcaine 0.5% for postop analgesia. Dressings were applied. The procedure was completed . The patient tolerated procedure well. There were no immediate complications. Initial and final counts of sponges and instruments were correct. Estimated blood loss was about 20 cc. The patient was extubated without difficulty and transferred to the recovery room with stable vital signs.
[2022-09-24 13:01] LABS: Glucose, Whole Blood 221 mg/dL (60-115)
== END 2022-09-24 14:43 | disposition home or self-care (01) ==
PROVIDERS: Nurse Practitioner; PCP Internal Medicine; Visit Provider Surgery
PROC: (CPT 11450; principal; 2022-09-24 11:20)
DX: L73.2 Hidradenitis suppurativa (principal); E11.9 Type 2 diabetes mellitus without complications; G43.909 Migraine, unspecified, not intractable, without status migrainosus; E66.01 Morbid (severe) obesity due to excess calories; Z79.84 Long term (current) use of oral hypoglycemic drugs; Z79.899 Other long term (current) drug therapy; Z87.891 Personal history of nicotine dependence
CPT/HCPCS: 11450; 81025; 82947; 88304; 88305; J0690; J1100; J1885; J2405; J2795; J3010

== ENCOUNTER → 2022-10-07 13:08 | Outpatient (BNVA) | payer MEDICAID, SELFPAY | PROVIDERS: PCP Internal Medicine; Visit Provider Surgery | DX: L73.2 Hidradenitis suppurativa (principal) | CPT/HCPCS: 99212 ==

== ENCOUNTER → 2022-10-17 13:11 | Outpatient (BNVA) | payer MEDICAID, SELFPAY | PROVIDERS: PCP Internal Medicine; Visit Provider Surgery | DX: L73.2 Hidradenitis suppurativa (principal) | CPT/HCPCS: 99212 ==

== ENCOUNTER 2023-06-12 14:43 | Outpatient (AMB) | payer MEDICAID, SELFPAY ==
[2023-06-12 14:46] VITALS: BP 156/78; PULSE 100
--- NOTE | 2023-06-12 14:46 | A.OFFVIS_ITS ---
Intake Vital Signs 06/12/23 14:46 06/12/23 15:17 Weight 237 lb BP 156/78 H 145/79 H Blood Pressure Location Lt brachial Position Sitting Pulse 100 79 Intake Visit Reasons: Gastroesophageal reflux disease (GERD) Allergies seafood Allergy (Severe, Verified 10/17/22 13:14) Anaphylaxis Medication List - Last Reconciled 06/12/23 by Rosa Rodriguez PA-C canagliflozin (Invokana) 100 mg PO QAM fluoxetine 20 mg PO QAM glipizide ER 10 mg PO BID hydroxyzine pamoate 50 mg PO TID PRN lisinopril 5 mg PO DAILY omeprazole 20 mg PO DAILY sitagliptin phos-metformin 100-1,000 mg ER (Janumet XR) 1 tab PO DAILY HPI HPI Comments History of Present Illness Details A 38 y/o female with acid reflux, abdominal pain, nausea, loose stool , burping for the past at least 6 months- Omeprazole daily - feels like food does not digest gets full easily, blood 2-3 loose stool QD-has nausea,intermitte ntly- no vomiting- Traveled to [place] in december 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 Father Hypertension Social History Household Members: Spouse Housing: Apartment Do you presently have visiting nurse or other home services: No Alcohol intake: never Patient Tobacco Use Status: Former Tobacco user service: No Current occupational status: employed Female Reproductive History Menstrual Age of Menarche: 13 Review of Systems Const All systems reviewed & are unremarkable except as noted in HPI and below Card Denies chest pain and Denies dyspnea Resp Denies dyspnea GI Reports abdominal pain, Denies melena, Denies hematochezia, Reports dyspepsia, Reports loose stools, Reports nausea and Denies vomiting Physical Exam Vital Signs: Last Vital Signs Pulse 79 06/12/23 15:17 BP 145/79 H 06/12/23 15:17 Const General: cooperative, healthy appearing, comfortable and no acute distress Eyes Sclerae: sclerae normal Resp Effort & Inspection: normal respiratory effort and able to speak in complete sentences Auscultation: clear to auscultation bilaterally, no rales, no rhonchi and no wheezes Cardio Rate: regular rate Rhythm: regular rhythm Heart sounds: S1 normal heart sound present and S2 normal heart sound present GI Inspection: Yes obesity Palpation (GI): Soft to palpation and nontender Skin General skin exam: no rashes or lesions noted Extrem General: Yes full ROM Psych Mental Status: mental status grossly normal Speech and movement: Clear speech present Affect: normal affect Attitude: cooperative Thought content: Normal thought content present Assessment & Plan Assessment & Plan (1) Abdominal pain: Comment: diffuse- non specific, wandering Code(s): R10.9 - Unspecified abdominal pain (2) Loose stools: Comment: Loose stool ongoing for about 6 months-will rule out infectious cause Code(s): R19.5 - Other fecal abnormalities Plan: Imodium Stools studies rule out infectious (3) Bloating symptom: Comment: Stool studies Code(s): R14.0 - Abdominal distension (gaseous) Plan: Stool studies, labs Low FODMAP Plan Baseline labs to include CBC, CMP as well as TSH GI panel as well as C diff H pylori stool antigen-after D seeing PPI for 2 weeks she may take Carafate in the interim Orders: Orders Erythrocyte Sedimentation Rate 06/12/23 R19.7 - Diarrhea, unspecified GI Panel 06/12/23 R19.7 - Diarrhea, unspecified Thyroid Stimulating Hormone 06/12/23 R19.8 - Other specified symptoms and signs involving the digestive system and abdomen NM gastric emptying study 06/12/23 R19.5 - Other fecal abnormalities, R14.0 - Abdominal distension (gaseous), E11.9 - Type 2 diabetes mellitus without complications Hemoglobin A1c 06/12/23 E11.9 - Type 2 diabetes mellitus without complications, R19.5 - Other fecal abnormalities Complete Blood Count Auto Diff 06/12/23 K52.9 - Noninfective gastroenteritis and colitis, unspecified Comprehensive Met. Panel 06/12/23 R19.5 - Other fecal abnormalities C Reactive Protein 06/12/23 R19.5 - Other fecal abnormalities, R14.0 - Abdominal distension (gaseous), R10.9 - Unspecified abdominal pain CDiff Gene PCR 06/12/23 R19.7 - Diarrhea, unspecified H pylori Ag Stool 06/12/23 A04.8 - Other specified bacterial intestinal infections Medications: New sucralfate 1 g PO BID 56 tabs 0RF 4 weeks loperamide (Imodium A-D) 2 mg PO Q6H PRN 30 tabs 1RF loose stool Patient Instructions: stop ppi carafate HP 2 week stool studies labs imodium GES Low FODMAP Coding Level of Care Code New Pt Level 4 (13204) Diagnoses Abdominal pain R10.9 Loose stools R19.5 Bloating symptom R14.0 Time Spent (min) 30 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
[2023-06-12 15:17] VITALS: BP 145/79; PULSE 79
== END 2023-06-12 15:22 | disposition home or self-care (01) ==
PROVIDERS: PCP Internal Medicine; Visit Provider Physician Assistant
DX: R10.9 Unspecified abdominal pain (principal); R19.5 Other fecal abnormalities; R14.0 Abdominal distension (gaseous)
CPT/HCPCS: 99204

== ENCOUNTER → 2023-06-12 14:43 | Outpatient (BNVA) | payer MEDICAID, SELFPAY | PROVIDERS: PCP Internal Medicine; Visit Provider Physician Assistant | DX: R10.9 Unspecified abdominal pain (principal); R19.5 Other fecal abnormalities; R14.0 Abdominal distension (gaseous) | CPT/HCPCS: 99212 ==

== ENCOUNTER → 2023-08-07 07:57 | Outpatient (REF) | payer MEDICAID, SELFPAY ==
--- NOTE | ~2023-08-07 | NM_ITS ---
EXAMINATION: HI RADIONUCLIDE SOLID FOOD GASTRIC EMPTYING 4-HOUR STUDY CLINICAL INFORMATION: Abdominal distention, (gaseous) type 2 diabetes. Loose stools and bloating symptoms. COMPARISON: No previous gastric emptying study is available for comparison. TECHNIQUE: A standard meal consisting of 4 oz of Egg Beaters brand tagged with 1 mCi Tc-99m Sulfur Colloid, 8 oz water and 2 slices of toast with jelly was administered orally to the patient. Images were obtained using a dual head gamma camera in the anterior and posterior projections over of the stomach immediately post ingestion and at hourly intervals up to 4 hours post ingestion. The anterior and posterior counts at each time interval were averaged using the geometric mean and expressed as percentage of the immediate post ingestion counts. FINDINGS: There is good visualization of activity in the stomach immediately post ingestion. As the study progresses, there is good clearance of activity from the stomach and visualization of progressively increasing small bowel activity. By the end of the study, there is almost no retention noted in the stomach. Retention in the stomach at each time interval was: 1 hour 78% (normal 37%-90%) 2 hours 60% (normal 30%-60%) 3 hours 10% 4 hours 8% (normal 0%-10%) NM/HI gastric emptying study IMPRESSION: Normal 4-hour solid food gastric emptying study. Gastric emptying study grading per JNMT Consensus Recommendations in 2008 (https://tech.snmjournals.org/content/36/1/44) Grade 1 (mild retention): 11-20% at 4h Grade 2 (moderate retention): 21-35% at 4h Grade 3 (severe retention): 36-50% at 4h Grade 4 (very severe retention): >50% retention at 4h
== END ==
LOC: HO.NUCMED 07:57
PROVIDERS: PCP Internal Medicine; Visit Provider Physician Assistant
DX: R19.5 Other fecal abnormalities (principal); R14.0 Abdominal distension (gaseous); E11.9 Type 2 diabetes mellitus without complications
CPT/HCPCS: 78264; A9541

== ENCOUNTER 2023-09-01 11:12 | Outpatient (REF) | payer MEDICAID, SELFPAY ==
--- NOTE | ~2023-09-01 | XR_ITS ---
EXAMINATION: XR ANKLE, LEFT CLINICAL INFORMATION: Left ankle pain. COMPARISON: None available. TECHNIQUE: AP, lateral, and mortise views of the left ankle. FINDINGS: Alignment is anatomic. Ankle mortise is maintained. The talar dome is intact. No displaced fracture or dislocation. Small plantar calcaneal spur. XR/XR ankle LT min 3V IMPRESSION: No acute abnormality.
== END 2023-09-01 11:13 | disposition home or self-care (01) ==
LOC: HO.HHCX 11:12
PROVIDERS: Visit Provider Internal Medicine
DX: M25.572 Pain in left ankle and joints of left foot (principal)
CPT/HCPCS: 73610